=== PATIENT | male | born 1980 | race Caucasian/White ===

== ENCOUNTER 2018-07-25 13:24 | Outpatient (CLI) | payer MEDICAID, SELFPAY | END 2018-07-25 13:44 | PROVIDERS: PCP Internal Medicine; Visit Provider Nurse Practitioner Family | DX: F11.20 Opioid dependence, uncomplicated (principal); Z79.899 Other long term (current) drug therapy | CPT/HCPCS: 93005; 93010 ==

== ENCOUNTER 2019-10-16 03:52 | Outpatient (CLI) | payer MEDICAID, SELFPAY ==
--- NOTE | 2019-10-16 08:15 | RT.EKG_ITS ---
APPROVED REPORT Exam: Resting ECG Patient Location: O HR:73 bpm ECG Measurements Heart Rate 73 AXIS MA 144 P 19 QRSd 96 QRS 31 QT 419 T 2 QTc 463 <Conclusion> Sinus rhythm...normal P axis, V-rate 60- 99 Normal Electrocardiogram
== END 2019-10-16 04:12 ==
PROVIDERS: PCP Internal Medicine; Visit Provider Family Medicine
DX: Z79.899 Other long term (current) drug therapy (principal); Z13.6 Encounter for screening for cardiovascular disorders
CPT/HCPCS: 93005; 93010

== ENCOUNTER 2020-11-18 04:01 | Outpatient (CLI) | payer MEDICAID, SELFPAY ==
--- NOTE | 2020-11-18 08:15 | RT.EKG_ITS ---
APPROVED REPORT Exam: Resting ECG Reason for Exam: High Risk Medication Patient Location: O HR:53 bpm ECG Measurements Heart Rate 53 AXIS UT 144 P 0 QRSd 92 QRS 68 QT 439 T 62 QTc 412 Conclusion Sinus bradycardia...rate< 60
== END 2020-11-18 04:02 | disposition home or self-care (01) ==
LOC: RT 04:02
PROVIDERS: PCP Internal Medicine; Visit Provider Family Medicine
DX: Z79.899 Other long term (current) drug therapy (principal)
CPT/HCPCS: 93005; 93010

== ENCOUNTER 2021-10-01 19:08 | Emergency (ER) | payer MEDICAID, SELFPAY ==
[2021-10-01 19:16] VITALS: BP 139/85; PULSE 68; RESP 22; TEMP 36.6; O2SAT 100
--- NOTE | 2021-10-01 19:18 | W.ED.GENAD ---
Discharge Plan Disposition Patient Disposition: HOME Condition: Stable Discharge Details Clinical Impression: Encounter for medical assessment Primary Care Provider: Vipin Beaver ED Provider: Mindy Cisneros Home Meds and New Rx's Prescriptions: Continued buprenorphine-naloxone [Suboxone] 1 EACH film 1 ea Sublingual DAILY ibuprofen 600 MG tablet 600 mg PO QID PRN PRNQty: 30 0RF Discontinued levofloxacin [Levaquin] 750 MG tablet 750 mg PO DAILY Qty: 9 0RF Rx Instructions: start 11/24/16 Discharge Instructions Instructions: Altered Mental Status (ED), Fatigue (ED) Additional Instructions: Drink plenty of fluids and get plenty of rest. Follow-up with your primary care doctor in 1 week. Return to the emergency department with any worsening or new concerning symptoms. 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 Patient was eventually able to ambulate on scene and had no acute complaints. Patient states he is unsure why he is here. He currently has no acute complaints. Vitals are within normal limits. No obvious acute findings on exam. Patient appears awake and alert and oriented x3 and no focal deficits or evidence of trauma. Patient would like to go home and is declining any work-up. History and presentation does not appear consistent with traumatic injury, ACS, PE, CVA. Advised to follow up with the primary care doctor for re-evaluation. Usual and customary return precautions given prior to discharge. Medical Records Medical records reviewed: Yes I reviewed the patient's medical records. HPI General Mode of arrival: ambulatory. Date/Time Provider Initiated Documentation: 10/01/21 19:24. Limitations to Documentation: no limitations. Information obtained by: patient. 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 Patient states his friend was in the delivery driver/customer service side of a vehicle that was parked when bystanders called EMS. EMS noted that patient was asleep in the passenger side, slumped over and was not initially responding to tactile stimuli and decided to bring him in for further evaluation. Patient was eventually able to wake up and ambulate on scene and had no acute complaints. Patient denies any recent injury, headache, blurry vision, chest pain, shortness of breath, abdominal pain, nausea, vomiting, diarrhea. Patient denies any alcohol or drug use today. He states he did take his methadone this morning. Related Data Home Medications Medication Instructions Recorded Confirmed buprenorphine 12 mg-naloxone 3 mg 1 ea sublingual DAILY 04/11/13 11/23/16 sublingual film (Suboxone) ibuprofen 600 mg tablet 600 mg PO QID PRN PRN #30 tabs 02/06/15 11/23/16 Previous Rx's Medication Instructions Recorded ibuprofen 600 mg tablet 600 mg PO QID PRN PRN #30 tabs 02/06/15 Allergies Allergy/AdvReac Type Severity Reaction Status Date / Time No Known Allergies Allergy Unverified 11/23/16 11:39 General Stated Complaint: GenMedical CHEMO: 3 Review of Systems All systems reviewed & are unremarkable except as noted in HPI and below Constitutional Constitutional: Denies chills, Denies excessive sweating, Denies fatigue, Denies fever(s), Denies weakness and Denies weight loss Eyes Eyes: Reports system reviewed and no additional complaints, except as documented and Denies blurry vision ENT Ears, Nose, Mouth, and Throat: Denies vertigo, Denies dizziness, Denies otalgia, Denies nasal congestion, Denies sore throat and Denies throat swelling Cardiovascular Cardiovascular: Denies chest pain, Denies syncope, Denies rapid heart rate and Denies dyspnea Respiratory Respiratory: Denies chest congestion, Denies cough, Denies pain on inspiration and Denies dyspnea Gastrointestinal Gastrointestinal: Denies abdominal pain, Denies diarrhea and Denies vomiting Genitourinary Genitourinary: Denies hematuria, Denies dysuria and Denies flank pain Musculoskeletal Musculoskeletal: Denies back pain and Denies joint swelling Integumentary/Breasts Skin/Breast: Denies lesions and Denies rash Neurologic Neurologic: Denies behavioral changes, Denies confusion, Denies vertigo, Denies dizziness, Denies syncope, Denies localized weakness and Denies weakness Psychiatric Psychiatric: Denies behavioral changes, Denies confusion and Denies depression Endocrine Endocrine: Denies excessive sweating and Denies fatigue Hematologic/Lymphatic Hematologic/Lymphatic: Denies easy bruising and Denies lymphadenopathy Allergic/Immunologic Allergic/Immunologic: Denies throat swelling PFSH All Active Problems (Updated 10/01/21 @ 19:19 by Mindy Cisneros DO) Encounter for medical assessment (Acute) Medical History (Updated 10/01/21 @ 19:19 by Mindy Cisneros DO) Narcotic abuse in remission Surgical History (Updated 10/01/21 @ 19:19 by Mindy Cisneros DO) No significant past surgical history Social History Smoking/Tobacco Use Status: Current every day Smoking risk assessment performed?: Yes Drug use: Daily Exam Const General: cooperative Orientation: alert, awake and oriented x3 HENMT Head: normal to inspection Ears: hearing grossly normal bilaterally and external ears normal General nose exam: external nose normal Face and sinus: normal facial exam Mouth: oral mucosae normal Teeth and gingiva: dentition normal Throat: posterior oropharynx normal Eyes General: appearance normal, both eyes and all related structures Eyelids: eyelids normal Pupils: PERRL EOM: EOM intact bilaterally Neck Neck: normal visual inspection Lymphatic: no lymphadenopathy noted Chest Chest: normal inspection of the chest Resp Effort & Inspection: normal respiratory effort and able to speak in complete sentences Auscultation: clear to auscultation bilaterally Cardio Rate: regular rate Rhythm: regular rhythm GI Inspection: normal to inspection Palpation: soft, not firm, no guarding, no hepatosplenomegaly, no masses and nontender Auscultation: normal bowel sounds Back/Spine/Pelvis Back: no CVA tenderness Skin General skin exam: no rashes or lesions noted Neuro General: patient alert and patient awake Cognition: normal cognition Speech: speech normal Gait: normal gait Motor: muscle tone normal throughout Sensory Exam: no sensory deficits noted Extrem General: normal to inspection, full ROM and capillary refill normal Psych Appearance: grossly normal Mental Status: mental status grossly normal Speech and Movement: speech and movement normal Affect: normal affect Thought Process: normal
== END 2021-10-01 19:27 | disposition home or self-care (01) ==
LOC: ER 19:38
PROVIDERS: Emergency Provider Physician Assistant; PCP Internal Medicine
DX: Z00.00 Encounter for general adult medical examination without abnormal findings (principal); F17.200 Nicotine dependence, unspecified, uncomplicated
CPT/HCPCS: 99283; 99281

== ENCOUNTER 2022-02-25 05:42 | Emergency (ER) | payer MEDICAID, SELFPAY ==
[2022-02-25 05:46] VITALS: BP 146/83; PULSE 75; RESP 18; TEMP 37; O2SAT 100
--- NOTE | 2022-02-25 06:07 | W.ED.GENAD ---
Discharge Plan Disposition Patient Disposition: Home Condition: Good Discharge Details Clinical Impression: Cellulitis of finger of right hand Primary Care Provider: Vipin Beaver ED Provider: Acosta Kong Home Meds and New Rx's Prescriptions: New clindamycin HCl [Cleocin HCl] 150 mg capsule 450 mg PO QID 10 Days Qty: 120 0RF Discharge Instructions Instructions: Cellulitis (ED) Additional Instructions: At this time you have cellulitis and a bacterial infection in your finger, wrist and left fallon. Please take the antibiotics as directed. It is been sent to your Car in the [place]. Please take a probiotic in the meantime to help prevent any diarrhea while taking the antibiotic. If you notice any worsening of your symptoms, or any new symptoms such as worsening or increasing swelling or redness, vomiting, diarrhea, fever, chills, shortness of breath, chest pain, numbness, weakness, or fainting , please return immediately to the emergency department for reevaluation. Please follow up with your primary care provider as soon as possible for reassessment and reevaluation. As always, it was a pleasure participating in your medical care today. Referrals: Vipin Beaver MD [Primary Care Provider] - Medical Decision Making 41-year-old male presents today for evaluation of a lesion on his right wrist, right middle finger, and left fallon. Patient states that for the last week or so these been present. He has tried to drain them but has been relatively unsuccessful. He denies fever or chills. He denies chest pain or shortness of breath. He denies IV or illicit drug use. He denies any recent infections other than these lesions. He states that this started out as pimples. No other complaints at this time. No other modifying factors. Exam demonstrates a few scattered cellulitic lesions the patient's right middle finger, right wrist and left fallon. No evidence of tensor or flexor tenosynovitis, no evidence of abscess. Will prescribe clindamycin here and a prescription will be sent to his pharmacy. No evidence of sepsis clinically or bacteremia. Discussed red flags which to return. I have extensively reviewed the treatment plan and discharge instructions with the patient. I have addressed all patient concerns at this time. The patient was made aware of what symptoms to monitor for that would warrant a return to the emergency department. Discussed the plan with the patient, they demonstrate verbal understanding and agreement with our assessment and plan at this time. The documentation in this chart was dictated using [employer] dictation software. Please excuse any dictation errors. Sign Out No HPI General Date/Time Provider Initiated Documentation: 02/25/22 06:06. HPI Narrative: 41-year-old male presents today for evaluation of a lesion on his right wrist, right middle finger, and left fallon. Patient states that for the last week or so these been present. He has tried to drain them but has been relatively unsuccessful. He denies fever or chills. He denies chest pain or shortness of breath. He denies IV or illicit drug use. He denies any recent infections other than these lesions. He states that this started out as pimples. No other complaints at this time. No other modifying factors. Related Data Home Medications Medication Instructions Recorded Confirmed clindamycin HCl 150 mg capsule 450 mg PO QID 10 days #120 caps 02/25/22 (Cleocin HCl) Previous Rx's Medication Instructions Recorded clindamycin HCl 150 mg capsule 450 mg PO QID 10 days #120 caps 02/25/22 (Cleocin HCl) Allergies Allergy/AdvReac Type Severity Reaction Status Date / Time No Known Allergies Allergy Unverified 02/25/22 05:46 General Stated Complaint: RashLesion CHEMO: 4 Review of Systems All systems reviewed & are unremarkable except as noted in HPI and below PFSH All Active Problems Cellulitis of finger of right hand (Acute) Medical History Narcotic abuse in remission Surgical History No significant past surgical history Social History Smoking/Tobacco Use Status: Current every day Tobacco Type: cigarettes Smoking risk assessment performed?: Yes Alcohol Intake: never Drug use: Daily Substance use type: does not use Do you feel safe at home: Yes Do you feel safe in your relationship?: Yes Exam Narrative Exam Narrative: 1.Const: Well-nourished, Well-developed, appearing stated age 2.Eyes: PERRL, no conjunctival injection, and symmetrical lids. 3.ENT: Atraumatic external nose and ears. Moist MM. Neck: Symmetric, trachea midline, No thyromegaly. 4.CVS: +S1/S2, No murmurs or gallops. Peripheral pulses 2+ and equal in all extremities. Brisk capillary refill in all extremities. 5.RESP: Unlabored respiratory effort. Clear to auscultation bilaterally. No wheezes rales or rhonchi 6.GI: Soft, Nontender/Nondistended, No hepatosplenomegaly. No guarding or rebound. 7.MSK: Normocephalic/Atraumatic, Extremities w/o deformity or ttp No cyanosis or clubbing, Normal movement of all extremities 8.Skin: Warm, Dry. Patient demonstrates a small cellulitic lesion on the dorsal aspect of his right middle finger, mild cellulitic area of redness over the right wrist, and a small lesion over the left fallon. No abscess or fluctuance. No evidence of neurovascular compromise. No evidence of flexor or tensor synovitis. No sausage shaped digits. 9.Neuro: manager personal II-XII grossly intact. Sensation grossly intact, no focal neurologic deficits. 10.Psych: (AAO) x3. Appropriate mood and affect Course Vital Signs Vital signs: Vital Signs Temperature 37 C 02/25/22 05:46 Pulse 75 02/25/22 05:46 Respiratory Rate 18 02/25/22 05:46 Blood Pressure 146/83 H 02/25/22 05:46 Pulse Oximetry 100 02/25/22 05:46 Temperature 37 C 02/25/22 05:46 Temperature Source Temporal Artery Scan 02/25/22 05:46 Pulse 75 02/25/22 05:46 Respiratory Rate 18 02/25/22 05:46 Respiratory Effort Non-Labored 02/25/22 05:52 Blood Pressure 146/83 H 02/25/22 05:46 Blood Pressure Position Sitting 02/25/22 05:46 Pulse Oximetry 100 02/25/22 05:46 Oxygen Delivery Method Room Air 02/25/22 05:46 Oxygen Flow Rate 0 02/25/22 05:46 Pain Level 6 02/25/22 05:46 PAWSS Have you Been Recently Intoxicated or Drunk Within the Last 30 days?: No Have you Ever Experienced Previous Episodes of Alcohol Withdrawal?: No Have you ever Experienced Withdrawal Seizures?: No Have you ever Experienced Delirium Tremens(DT)s?: No Have you ever undergone Alcohol Rehabilitation Treatment (i.e, inpt ot outpatient treatment programs)?: No Have you ever Experienced Blackouts?: No Have you ever Combined Alcohol with other Downers within the last 90 days?: No Have you ever Combined Alcohol with any other Substance of Abuse during the last 90 days?: No Positive Blood Alcohol level on Presentation? [PCS.BAL]: No Evidence of Increased Autonomic Activity (i.e. HR>120, tremor, sweating, agitation, nausea)?: No Result: 0
[2022-02-25] MEDS: Clindamycin 150 MG CAP, 12 CAPS/BTL 450 MG PO (06:12)
== END 2022-02-25 06:17 | disposition home or self-care (01) ==
PROVIDERS: Emergency Provider Student in an Organized Health Care Education/Training Program; PCP Internal Medicine
DX: L03.113 Cellulitis of right upper limb (principal); L03.116 Cellulitis of left lower limb
CPT/HCPCS: 99283

== ENCOUNTER 2022-03-22 00:16 | Inpatient (IN) | payer MEDICAID, SELFPAY ==
[2022-03-22] VITALS (210 sets, daily range): BP systolic 64–217; BP diastolic 33–125; PULSE 48–134; RESP 13–40; TEMP 36.1–36.9; O2SAT 84–100
[2022-03-22] MEDS: LORazepam 2 MG/ML VIAL (00:27)
[2022-03-22] MEDS: Ketamine 500 MG/10 ML VIAL 150 MG IM (00:43)
--- NOTE | 2022-03-22 00:45 | DI.RAD_ITS ---
Exam(s) XR PORTABLE CHEST AP POST LINE EXAM: XR PORTABLE CHEST AP POST LINE CLINICAL HISTORY: ams/ intubation TECHNIQUE: 2D digital imaging was performed. COMPARISON: CR RIGHT WRIST COMPLETE from 02/06/2015 FINDINGS: An endotracheal tube has been placed which lies at the level of the aortic arch. Leads overlie the c hest. Small portions of the costophrenic angles are not included on the exam. LUNGS: Clear. No pleural abnormality seen. HEART: Normal size. AORTA: Normal diameter. BONES: Unremarkable for age. Soft tissues: Unremarkable. IMPRESSION: Satisfactory placement of endotracheal tube. DATA REPOSITORY: RADIATION DOSE DELIVERED:
[2022-03-22 00:58] LABS: Abs Immature Grans 0.04 10^3/uL (0.0-0.06); Absolute Basophil Count 0.12 10^3/uL (0.0-0.2); Absolute Eosinophil Count 0.12 10^3/uL (0.0-0.7); Absolute Lymphocyte Count 3.05 10^3/uL (1.2-3.4); Absolute Monocyte Count 0.89 10^3/uL (0.1-0.8); Absolute Neutrophil Count 9.45 10^3/uL (1.2-6.7); Basophils % 0.9; Eosinophils % 0.9; HCT 40.3 % (40.0-50.0); HGB 13.7 g/dL (13.5-17.5); Immature Grans % 0.3; Lymphocytes % 22.3; MCH 27.9 pg (27.0-33.0); MCV 82 fL (80-95); MPV 10.3 fL (8.0-11.0); Monocytes % 6.5; Neutrophils % 69.1; Platelet Count 473 10^3/uL (130-400); RBC 4.91 10^6/uL (4.36-5.78); RDW-SD 36.2 fL; WBC 13.67 10^3/uL (4.4-10.8)
[2022-03-22 01:13] LABS: Acetaminophen < 2 ug/mL (10-30); Salicylate 3.5 mg/dL (<2.8)
[2022-03-22] MEDS: Etomidate 20 MG/10 ML VIAL IVP (01:15)
[2022-03-22] MEDS: Succinylcholine 200 MG/10 ML VIAL 100 MG IVP (01:15)
--- NOTE | 2022-03-22 01:15 | DI.CT_ITS ---
Exam(s) CT HEAD WO EXAM: CT HEAD WO CLINICAL HISTORY: ams, agitation. TECHNIQUE: Imaging Protocol: Axial computed tomography images with coronal and sagittal reformatted images were created and reviewed COMPARISON: No exams were available for comparison FINDINGS: Ventricles and Extra axial spaces: Normal in size and morphology for the patient's age. Hemorrhage: None. Cerebral parenchyma: Normal. Midline shift: None. Brainstem/Cerebellum: Normal. Calvarium: Normal. Visualized Paranasal sinuses/Mastoids: Minimal ethmoid sinus mucosal thickening. Soft Tissues: Unremarkable. Endotracheal tube and nasogastric tube noted. IMPRESSION: No acute intracranial process. RADIATION DOSE DELIVERED: 994.73mGy.cm Total DLP DATA REPOSITORY: All CT scans at this facility are submitted to the National Radiology Data Registry (NRDR) Dose Index Registry (DIR) with the [employer] (A[employer]). RADIATION OPTIMIZATION: All CT scans at this facility use at least one of these dose optimization te chniques: automated exposure control; mA and/or kV adjustment per patient size (includes targeted exa ms where dose is matched to clinical indication); or iterative reconstruction.
[2022-03-22 01:22] LABS: ALT 18 U/L (16-63); AST 23 U/L (15-37); Albumin 4.2 g/dL (3.4-5.0); Alkaline Phosphatase 90 U/L (46-116); BUN 16 mg/dL (7-18); Bilirubin, Total 0.8 mg/dL (0.2-1.0); CREATININE 1.3 mg/dL (0.70-1.30); Calcium 9.2 mg/dL (8.5-10.1); Chloride 102 mmol/L (98-107); Estimated GFR 71.67 (mL/min/1.73m2); Glucose 134 mg/dL (74-106); Magnesium 1.9 mg/dL (1.8-2.4); Potassium 3.2 mmol/L (3.5-5.1); Sodium 139 mmol/L (136-145); TSH (W/Ref FT4) 0.71 uIU/mL (0.36-3.74)
[2022-03-22] MEDS: PROPOFOL 1,000 MG/100 ML BTL 9.6 MG (01:22)
[2022-03-22 01:28] LABS: ETHANOL BLOOD < 3.0 mg/dL (<10)
[2022-03-22] MEDS: Midazolam 10 MG/2 ML VIAL NS (01:31)
[2022-03-22] MEDS: Normal Saline 1,000 ML 1000 ML IV (01:33)
[2022-03-22] MEDS: Ondansetron 4 MG/2 ML VIAL IVP (01:35)
--- NOTE | 2022-03-22 01:40 | ED.GENADUL_ITS ---
Discharge Plan Disposition Patient Disposition: Admit to [facility] Condition: Serious Discharge Details Chief Complaint: AMS/LOC Clinical Impression: Agitation, Acute opioid withdrawal, Polysubstance abuse Primary Care Provider: Vipin Beaver ED Provider: Kris Burnham Medical Decision Making 41-year-old male picked up by PD for breaking curfew given Narcan by PD for initial somnolence, patient progressed to agitation combativeness psychomotor agitation and aggression, brought in by EMS in four-point restraints, thrashing aggressive altered not responding verbally, not following commands, patient diaphoretic intermittently yawning and having fecal incontinence. High clinical suspicion for acute opioid withdrawal and subsequent agitation versus tox versus less consider traumatic injury however per report by Police Department and EMS there was no traumatic injury at scene or during transport, muscles consider electrolyte abnormality versus infectious process. Patient was brought into room transferred to bed kept in four-point restraints, multiple attempts at IV access were attempted however patient thrashing aggressively prohibited successful placement, eventually after 2 mg IM Ativan and 75 mg IM ketamine a left-sided EJ peripheral line was placed labs were obtained, patient became progressively more agitated aggressive pulling at restraints intermittently becoming somnolent and desat into the 80s placed on nasal cannula this cycle of agitation followed by somnolence increase in severity, for patient's airway protection and expected clinical course as well as for the ability to perform appropriate diagnostic tests patient was transferred to a larger room and prepared for endotracheal intubation. During this process patient's left-sided EJ pulled out due to persistent diaphoresis and thrashing, and IO line was placed in right tibial region, patient was induced with etomidate and paralyzed with succinylcholine, intubated DL 7.5 cuffed tube patient did have initial desaturation to the 60s upon induction but was easily bagged back up to the high 90s. Patient placed on ventilator and started on propofol. Patient requiring intermittent pushes of Versed to remain sedated appropriately. Will likely have to transition patient to dexmedetomidine. Patient will be sent to diagnostic imaging for CT head. Will send basic labs toxicology labs, urinalysis, VBG. Admission to ICU 3: 01 labs largely unremarkable. X-ray confirming ET tube placement. Patient saturating well on the vent. Hemodynamically stable. Despite uptitrating propofol patient still agitated intermittently bucking and breathing against the vent, have given him 2 boluses of Versed without response, now have transition patient to Precedex drip starting at 0.2 mg/kg/h we will continue to uptitrate to sedation to safely transport patient to CT table for CT head. 5: 30 patient required multiple propofol boluses on top of Precedex drip in order to properly sedate for CT and transport. Became bradycardic to the 50s and dropped his pressure to 60s systolic likely secondary to Precedex. Was given fluid bolus with improvement of pressures to the 70s systolic however MAP still less than 65. A sterile right femoral central line was placed and norepinephrine was hung. Patient's blood pressure has responded appropriately. CT head negative for intracranial pathology. Patient be admitted to ICU HPI General Date/Time Provider Initiated Documentation: 03/22/22 00:35 . HPI Narrative: 41-year-old male history of polysubstance abuse, records show that he is a patient taking Suboxone, was in violation of curfew due to recent release, was picked up by PD, officer noted during transport that he became more somnolent was leaning his head against the window patient was initially arousable however became somnolent again; Narcan was administered x2, after this patient became more agitated combative and then intermittently somnolent. After returning to the [facility] with patient patient became increasingly more erratic and aggressive, with worsening mental status. EMS was called to the scene, patient was placed in restraints on gurney, arrived to ED acutely agitated combative thrashing on bed. Per PD and EMS no trauma at scene. No drug paraphernalia was found on patient. Related Data Allergies Allergy/AdvReac Type Severity Reaction Status Date / Time No Known Allergies Allergy Unverified 02/25/22 05:46 General Stated Complaint: AMS/LOC CHEMO: 2 Review of Systems Narrative: Review of Systems Constitutional: negative Eyes: negative ENT: negative Cardiovascular: negative Respiratory: negative Gastrointestinal: negative : negative Musculoskeletal: negative Skin: negative Neurologic: Agitation, altered mental status Psych: negative PFSH All Active Problems (Updated 03/22/22 @ 05:32 by Kris Burnham MD) Cellulitis of finger of right hand (Acute) Agitation (Acute) Acute opioid withdrawal (Acute) Polysubstance abuse (Acute) Medical History Narcotic abuse in remission Surgical History No significant past surgical history Social History Smoking/Tobacco Use Status: Current every day Tobacco Type: cigarettes Smoking risk assessment performed?: Yes Alcohol Intake: never Drug use: Daily Substance use type: does not use Do you feel safe at home: Yes Do you feel safe in your relationship?: Yes Exam Narrative Exam Narrative: Physical Examination General: Acutely agitated, thrashing, diaphoretic HEENT: normocephalic, atraumatic; PERRL, EOM intact, conjunctiva normal; patient yawning, spitting Neck: supple, trachea midline; full ROM Chest: normal to inspection Respiratory: normal respiratory effort, lungs clear bilaterally Cardiac: Tachycardia, regular rhythm, S1S2 intact, no murmurs rubs or gallops GI: abdomen soft, non-tender, non-distended; no palpable mass or hepatosplenomegaly : Patient defecated on self Skin: Diaphoretic Neuro: Acutely altered, agitated, moving all extremities with great strength Extremities: No signs of trauma or edema Psych: Psychomotor agitation Course Vital Signs Vital signs: Vital Signs Temperature 36.7 C 03/22/22 00:36 Pulse 129 H 03/22/22 00:36 Respiratory Rate 32 H 03/22/22 00:36 Blood Pressure 141/77 H 03/22/22 00:36 Pulse Oximetry 97 03/22/22 00:36 Temperature 36.7 C 03/22/22 00:36 Temperature Source Tympanic 03/22/22 00:36 Pulse 98 H 03/22/22 01:24 Pulse 103 H 03/22/22 01:24 Respiratory Rate 18 03/22/22 01:24 Respiratory Effort 03/22/22 00:23 Blood Pressure 118/93 H 03/22/22 01:24 Blood Pressure Mean 97 03/22/22 01:24 Blood Pressure Position Supine 03/22/22 00:15 Pulse Oximetry 96 03/22/22 01:24 Respiratory End-tidal CO2 66 03/22/22 01:24 Oxygen Delivery Method Nasal Cannula 03/22/22 00:46 Oxygen Flow Rate 4 03/22/22 00:46 Pain Level 0 01/02/23 00:15 Comment 03/22/22 00:46 Lab/Test Results Lab/Test Results: Laboratory Tests Range/Units 03/22/22 03/22/22 03/22/22 00:50 00:50 00:50 WBC (4.4-10.8) 10^3/uL 13.67 H RBC (4.36-5.78) 10^6/uL 4.91 Hgb (13.5-17.5) g/dL 13.7 Hct (40.0-50.0) % 40.3 MCV (80-95) fL 82 MCH (27.0-33.0) pg 27.9 MCHC (32.0-36.0) % 34.0 RDW (11.8-14.1) % 12.0 Plt Count (130-400) 10^3/uL 473 H MPV (8.0-11.0) fL 10.3 Immature Gran % 0.3 Neutrophils % 69.1 Lymphocytes % 22.3 Monocytes % 6.5 Eosinophils % 0.9 Basophils % 0.9 Nucleated RBC % (0.0-0.3) % 0.0 Absolute Neutrophils (1.2-6.7) 10^3/uL 9.45 H Absolute Lymphocytes (1.2-3.4) 10^3/uL 3.05 Absolute Monocytes (0.1-0.8) 10^3/uL 0.89 H Absolute Eosinophils (0.0-0.7) 10^3/uL 0.12 Absolute Basophils (0.0-0.2) 10^3/uL 0.12 Sodium (136-145) mmol/L 139 Potassium (3.5-5.1) mmol/L 3.2 L Chloride (98-107) mmol/L 102 Carbon Dioxide (21.0-32.0) mmol/L 24.0 Anion Gap (3-11) mmol/L 13.0 H BUN (7-18) mg/dL 16 Creatinine (0.70-1.30) mg/dL 1.3 Est GFR (CKD-EPI 2020) (mL/min/1.73m2) 71.67 Glucose (74-106) mg/dL 134 H Calcium (8.5-10.1) mg/dL 9.2 Magnesium (1.8-2.4) mg/dL 1.9 Total Bilirubin (0.2-1.0) mg/dL 0.8 AST (15-37) U/L 23 ALT (16-63) U/L 18 Alkaline Phosphatase (46-116) U/L 90 Total Protein (6.4-8.2) g/dL 8.0 Albumin (3.4-5.0) g/dL 4.2 TSH (0.36-3.74) uIU/mL 0.71 Salicylates (<2.8) mg/dL 3.5 Acetaminophen (10-30) ug/mL < 2 Ethyl Alcohol (<10) mg/dL < 3.0 Procedures Central Line Placement Right Femoral: Time Out Performed: No Patient Placed on Monitor/Pulse Ox: Yes MD Prep: mask, gown and gloves Central Line Prep: Chlorhexidine scrub Local Anesthetic: Lidocaine 1% Amount of anesthesia used (mL): 4 Ultrasound Used for Placement: Yes Central Line Lumen Inserted: triple Post Procedure: good blood return and all ports aspirated, flushed, capped Patient Tolerated Procedure: well Complications: none Intubation Time out performed: No sedative: Etomidate Mg Given: 20 paralytic: Succinylcholine Mg Given: 100 Laryngoscope: Michael ET Tube Size: 7.5 ET Tube Uncuffed: Yes Tube Placement Confirmation: visualized tube passing through cords, equal breath sounds bilaterally, no breath sounds over epigastrum and confirmation by capnometry Intubation Complications: hypoxia Additional Comments: Desaturation to 60% after induction, was easily bagged back up to high 90s. IO Right Tibia: Time Out Performed: No IO Instrument Used to Penetrate the Cortex: standard IO needle Patient Tolerated Procedure: well Complications: none
--- NOTE | 2022-03-22 02:10 | DI.VRAD_ITS ---
PROCEDURE INFORMATION: Exam: XR Chest Exam date and time: 03/22/2022 1:11 AM Age: 41 years old Clinical indication: Device placement; Other: Post intubation; Patient HX: AMS TECHNIQUE: Imaging protocol: Radiologic exam of the chest. Views: 1 view. COMPARISON: No relevant prior studies available. FINDINGS: Tubes, catheters and devices: Endotracheal tube is in place with distal tip approximately 4.2 cm proximal to the fam. Lungs: Lungs are adequately inflated symmetric. No focal consolidation. Pleural spaces: Bilateral costophrenic angles are excluded from field of view limiting evaluation for small pleural effusion. No large pleural effusion. No pneumothorax. Heart/Mediastinum: No cardiomegaly. Bones/joints: No acute osseous finding. IMPRESSION: Endotracheal tube in place in appropriate position. Dictated and Authenticated by: Zach Whittaker MD. Ordering:ALF Ponce MD
[2022-03-22] MEDS: dexmedeTOMidine IN 0.9 % NACL 400 MCG/100 ML BTL IV (02:33)
[2022-03-22] MEDS: PROPOFOL 1,000 MG/100 ML BTL 19.2 MG IV (02:34)
[2022-03-22 02:39] LABS: BE (Venous) 1 mmol/L (-2-3); HCO3 (Venous) 26 mmol/L (23-28); pCO2 (Venous) 45 mmHg (41-51); pH (Venous) 7.37 (7.31-7.41); pO2 (Venous) 225 mmHg
[2022-03-22 02:40] LABS: O2 Sat (Venous) > 99 %
--- NOTE | 2022-03-22 02:40 | NUR.NOTE ---
Nursing Note: Patient arrives to ED in 4 point restraints with EMS from police baracks. Arousable, responsive to stimuli with movement, combative. Maintaining airway. Moving all four extremities, not following commands. IM ativan given (see MAR for further documentaion). Patient remains difficult to restrain while obtaining vital signs and IV access requiring four people in addition to four point restraints. IM ketamine given (see MAR for further documentation). Patient continues to be restless, combative and difficult to subdue. Begins to intermitently desat. Plan to intubate for airway protection and diagnositic work up. Unable to obtain IV access due to combativeness and profuse sweating, IO access obtained by MD. 0110: Intubated with etomidate and succ through IO access. IV access obtained. 0120: Propofol started at 20 mcg/kg, given inital loading bolus of 100 mg. 0125: Propofol titrated up to 30 mcg/min. BP remains stable. 0128: Patient continues to be inadequately sedated as evidenced by biting ET tube and continous movement of all four restrained limbs. Second bolus of prop given by MD. 5MG versed given IV push. 0145: Propofol titraed up to 40mcg/min. Continous to be inadequatly sedated. Second bolus of 5mg versed given. OG tube and galloway placed. Patient invontinent of stool. Cleaned up. Changed from four point hard restraints to four point soft restraints due to chaffing. Patient has new abrasions to right wrist and right leg at place of hard restraints due to resistance and difficulty with sedation. 0200: Propofol titraed up to 60mcg/min. Continous to be inadequatly sedated. Plan to transition to precedex for more adequate sedation. Vitals continue to remain stable. 0227: Precedex started at .2mg/kg/min. Propfol titrated down to 40mcg/min. Patient continues to show signs of inadequate sedation. Vitally stable. 0230: Propofol titrated down to 30, plan to titrate up precedex at appropriate interval. Patient continues to remain vitally stable, continuous monitoring remains in place, BP cycling Q5min. 0300: Nursing report given to RN's Sarah and Jenna.
[2022-03-22 02:52] LABS: Bilirubin Small (Negative); Blood Negative (Negative); Clarity Sl Cloudy (Clear); Glucose Negative (Negative); Ketones 15 mg/dL (Negative); Leukocyte Esterase Negative (Negative); Nitrite Negative (Negative); pH 8.5 (5-8)
--- NOTE | 2022-03-22 02:52 | NUR.NOTE ---
Nursing Note: 0248: increased precedex to 0.4mcg/kg/hr per dr. ruano
[2022-03-22 03:01] LABS: *AMPHETAMINES SCREEN URINE Negative (Negative); *BARBITURATES SCREEN URINE Negative (Negative); *BENZODIAZEPINES SCREEN URINE Negative (Negative); Bacteria Moderate HPF (Negative); C & S Indicated? Yes; Cannabinoids THC Negative (Negative); Cocaine Screen,Urine Positive (Negative); Crystals Negative HPF (Negative); Epithelial Cells Negative HPF (Negative); METHADONE URINE SCREEN Negative (Negative); Mucus Moderate (Negative); OPIATES URINE SCREEN Positive (Negative); Other Cells Rare Transitional (Negative)
[2022-03-22 03:02] LABS: Tricyclic Antidepressants Negative (Negative)
--- NOTE | 2022-03-22 03:18 | NUR.NOTE ---
Nursing Note: [address] ruano, increase precedex 0.2mcg/kg/hr
[2022-03-22] MEDS: Lactated Ringers 1,000 ML 1000 ML IV (03:20)
--- NOTE | 2022-03-22 03:44 | NUR.NOTE ---
Nursing Note: 0342 - increase precedex to 0.8 mcg/kg/hr
--- NOTE | 2022-03-22 05:04 | DI.VRAD_ITS ---
PROCEDURE INFORMATION: Exam: CT Head Without Contrast Exam date and time: 03/22/2022 3:53 AM Age: 41 years old Clinical indication: Altered mental status/memory loss; Patient HX: Ams/agitation TECHNIQUE: Imaging protocol: Computed tomography of the head without contrast. Radiation optimization: All CT scans at this facility use at least one of these dose optimization techniques: automated exposure control; mA and/or kV adjustment per patient size (includes targeted exams where dose is matched to clinical indication); or iterative reconstruction. COMPARISON: No relevant prior studies available. FINDINGS: Brain: Mild volume loss. No hemorrhage. Unremarkable white matter. No mass effect. Cerebral ventricles: No ventriculomegaly. Paranasal sinuses: Visualized sinuses are unremarkable. No fluid levels. Mastoid air cells: Visualized mastoid air cells are well aerated. Bones/joints: Unremarkable. No acute fracture. Soft tissues: Unremarkable. IMPRESSION: No acute intracranial abnormality. Dictated and Authenticated by: Randall Guaman MD. Ordering:ALF Ponce MD
[2022-03-22] MEDS: Norepinephrine in D5W 8 MG/250 ML BAG 7.5 MG IV (05:05)
--- NOTE | 2022-03-22 05:08 | NUR.NOTE ---
Nursing Note: 0345 - transported pt CT with RT and Dr. Sepulveda. Pt started to become combative and attempt to pull tube out. Dr. Sepulveda medicated pt. After medicating pt was able to have CT. 0447 - pt BP drop to 70s systolic. Notified provider. Precedex decreased to 0.6mcg/kg/hr; propofol no longer running. 0452 - Norepi started at 7.5ml/hr in right hand. 0504 - central line placed in right femoral artery by Dr. Zacarias
--- NOTE | 2022-03-22 05:13 | NUR.NOTE ---
Girlfriend Jacklyn, .Nursing Note:
[2022-03-22 05:34] LABS: Source Nasal/Nares
--- NOTE | 2022-03-22 05:38 | NUR.NOTE ---
Nursing Note: 0525- pt became agitated when being covid swabbed, attempted to pull tube out. Increased precedex to 1 per Doc.
[2022-03-22] MEDS: Lactated Ringers 1,000 ML 2000 ML IV (05:41)
--- NOTE | 2022-03-22 05:51 | W.PM.HP.N ---
Date of service: 03/22/22 Time of Service: 06:00 Assessment and Plan Assessment and plan (1) Agitation: Status: Acute Assessment and plan: He has required multiple agents to deal with his agitation. He is currently on Precedex is causing some bradycardia and had caused some hypotension. He required norepinephrine to increase his pressure. He is currently bradycardic but maintaining his blood pressure. He may have had some aspiration with the extubation. He will be monitored closely in the intensive care unit. Hopefully his medicines can be tapered later today and further mental status evaluation can be evaluated. (2) Acute opioid withdrawal: Status: Acute Assessment and plan: Urine drug screen confirmation has been sent to identify the opiates in the urine. (3) Polysubstance abuse: Status: Acute Assessment and plan: See above. History of Present Illness History of Present Illness Chief Complaint: Narcotic withdrawal Narrative: This 41-year-old male was brought to the hospital because of agitation, confusion. See his ER physician's report. He was picked up by the police late last night because of apparently violation of his curfew. He became somnolent in police custody and was given Narcan. EMS was called and the patient was brought to the hospital with considerable agitation and combativeness. He was given multiple doses of Versed, lorazepam, ketamine that eventually switched to propofol. External jugular vein was accessed for laboratory studies but eventually the patient pulled out. He was intubated after receiving etomidate and succinylcholine. An intraosseous line was placed and the patient eventually received femoral vein catheter for access. The patient was switched to Precedex for control of his agitation but he developed bradycardia and hypotension. He was then placed on norepinephrine to maintain his blood pressure. He received about 3 L of intravenous fluid bolus. Reynolds catheter was placed. A head CT and chest x-ray were done which were negative. A repeat chest x-ray was attempted but the patient got extremely agitated and then pulled his orogastric tube and endotracheal tube out in spite of his four-point restraints. He was managed in the emergency department from shortly after midnight to 6:30 AM. After the patient pulled ET tube out he was maintaining his oxygenation and protecting his airway. It was elected not to restart the endotracheal tube and mechanical ventilation. The patient currently is on norepinephrine and Precedex and intravenous fluids. He has a right lower leg intraosseous line, a right femoral vein triple-lumen catheter, and a Reynolds catheter. I did talk to his girlfriend Keiry at [phone]. She says that she works many hours and is not home much. He does live with her but she has not seen him much over the last week. She says this is not really unusual for him to come and go like this. She does not really know what he has been doing. In terms of family she says that he has children but he does not really see them. She thinks his youngest is a teenager around age 13. His father last year but she does not know anything about his mother. She says that for the most part she is his family. Review of Systems Narrative: Unable because of his mental status. [facility] All Active Problems (Updated 03/22/22 @ 05:32 by Kris Burnham MD) Cellulitis of finger of right hand (Acute) Agitation (Acute) Acute opioid withdrawal (Acute) Polysubstance abuse (Acute) Medical History Narcotic abuse in remission Surgical History No significant past surgical history Social History Smoking/Tobacco Use Status: Current every day Tobacco Type: cigarettes Smoking risk assessment performed?: Yes Alcohol Intake: never Drug use: Daily Substance use type: does not use Do you feel safe at home: Yes Do you feel safe in your relationship?: Yes Meds Allergies and Home Medications Allergies Allergy/AdvReac Type Severity Reaction Status Date / Time No Known Allergies Allergy Unverified 02/25/22 05:46 Home Medications Medication Instructions Recorded Confirmed Type Unknown [No Known Home Meds] 03/22/22 03/22/22 History Exam Const Other: He is combative at times and is noncommunicative. Eyes General: appearance normal, both eyes and all related structures Neck Neck: normal visual inspection, no lymphadenopathy, supple and no JVD Resp Effort & Inspection: normal respiratory effort Auscultation: clear to auscultation bilaterally Cardio Rate: bradycardic Rhythm: regular rhythm Heart Sounds: S1 normal, S2 normal, no gallops and no murmurs GI Palpation: soft, no hepatosplenomegaly and nontender Extrem General: normal to inspection, no clubbing, no cyanosis and no edema Results Labs Result diagrams: 03/22/22 00:50 03/22/22 00:50 Labs: Laboratory Results - last 24 hr 03/22/22 03/22/22 03/22/22 00:50 00:50 00:50 WBC 13.67 H RBC 4.91 Hgb 13.7 Hct 40.3 MCV 82 MCH 27.9 MCHC 34.0 RDW 12.0 Plt Count 473 H MPV 10.3 Immature Gran % 0.3 Neutrophils % 69.1 Lymphocytes % 22.3 Monocytes % 6.5 Eosinophils % 0.9 Basophils % 0.9 Nucleated RBC % 0.0 Absolute Neutrophils 9.45 H Absolute Lymphocytes 3.05 Absolute Monocytes 0.89 H Absolute Eosinophils 0.12 Absolute Basophils 0.12 VBG pH VBG pCO2 VBG pO2 VBG HCO3 VBG Total CO2 VBG O2 Saturation VBG Base Excess Sodium 139 Potassium 3.2 L Chloride 102 Carbon Dioxide 24.0 Anion Gap 13.0 H BUN 16 Creatinine 1.3 Est GFR (CKD-EPI 2020) 71.67 Glucose 134 H Calcium 9.2 Magnesium 1.9 Total Bilirubin 0.8 AST 23 ALT 18 Alkaline Phosphatase 90 Total Protein 8.0 Albumin 4.2 TSH 0.71 Urine Color Urine Clarity Urine pH Ur Specific [place] Urine Protein Urine Ketones Urine Blood Urine Nitrite Urine Bilirubin Urine Urobilinogen Ur Leukocyte Esterase Urine RBC Urine WBC Ur Epithelial Cells Urine Crystals Urine Bacteria Urine Mucus Urine Other Ur Culture Indicated? Urine Glucose Salicylates 3.5 Urine Opiates Screen Urine Methadone Screen Acetaminophen < 2 Ur Barbiturates Screen Ur Tricyclics Screen Ur Amphetamines Screen U Benzodiazepines Scrn Urine Cocaine Screen Ur THC Screen Ethyl Alcohol < 3.0 COVID-19 Source 03/22/22 03/22/22 03/22/22 02:25 02:25 02:25 WBC RBC Hgb Hct MCV MCH MCHC RDW Plt Count MPV Immature Gran % Neutrophils % Lymphocytes % Monocytes % Eosinophils % Basophils % Nucleated RBC % Absolute Neutrophils Absolute Lymphocytes Absolute Monocytes Absolute Eosinophils Absolute Basophils VBG pH 7.37 VBG pCO2 45 VBG pO2 225 VBG HCO3 26 VBG Total CO2 VBG O2 Saturation > 99 VBG Base Excess 1 Sodium Potassium Chloride Carbon Dioxide Anion Gap BUN Creatinine Est GFR (CKD-EPI 2020) Glucose Calcium Magnesium Total Bilirubin AST ALT Alkaline Phosphatase Total Protein Albumin TSH Urine Color Yellow Urine Clarity Sl Cloudy Urine pH 8.5 H Ur Specific [place] 1.020 Urine Protein >=300 H Urine Ketones 15 H Urine Blood Negative Urine Nitrite Negative Urine Bilirubin Small H Urine Urobilinogen 1.0 H Ur Leukocyte Esterase Negative Urine RBC 3-5 H Urine WBC 3-5 Ur Epithelial Cells Negative Urine Crystals Negative Urine Bacteria Moderate Urine Mucus Moderate Urine Other Rare Transitional Ur Culture Indicated? Yes Urine Glucose Negative Salicylates Urine Opiates Screen Positive A Urine Methadone Screen Negative Acetaminophen Ur Barbiturates Screen Negative Ur Tricyclics Screen Negative Ur Amphetamines Screen Negative U Benzodiazepines Scrn Negative Urine Cocaine Screen Positive A Ur THC Screen Negative Ethyl Alcohol COVID-19 Source 03/22/22 05:30 WBC RBC Hgb Hct MCV MCH MCHC RDW Plt Count MPV Immature Gran % Neutrophils % Lymphocytes % Monocytes % Eosinophils % Basophils % Nucleated RBC % Absolute Neutrophils Absolute Lymphocytes Absolute Monocytes Absolute Eosinophils Absolute Basophils VBG pH VBG pCO2 VBG pO2 VBG HCO3 VBG Total CO2 VBG O2 Saturation VBG Base Excess Sodium Potassium Chloride Carbon Dioxide Anion Gap BUN Creatinine Est GFR (CKD-EPI 2020) Glucose Calcium Magnesium Total Bilirubin AST ALT Alkaline Phosphatase Total Protein Albumin TSH Urine Color Urine Clarity Urine pH Ur Specific [place] Urine Protein Urine Ketones Urine Blood Urine Nitrite Urine Bilirubin Urine Urobilinogen Ur Leukocyte Esterase Urine RBC Urine WBC Ur Epithelial Cells Urine Crystals Urine Bacteria Urine Mucus Urine Other Ur Culture Indicated? Urine Glucose Salicylates Urine Opiates Screen Urine Methadone Screen Acetaminophen Ur Barbiturates Screen Ur Tricyclics Screen Ur Amphetamines Screen U Benzodiazepines Scrn Urine Cocaine Screen Ur THC Screen Ethyl Alcohol COVID-19 Source Nasal/Nares Last Vital Signs Temp 36.7 C 03/22/22 00:36 Pulse 54 L 03/22/22 05:21 Resp 18 03/22/22 03:51 BP 123/82 03/22/22 05:21 Pulse Ox 97 03/22/22 05:21
[2022-03-22 06:05] LABS: COVID-19 PCR Negative (Negative)
[2022-03-22] MEDS: dexmedeTOMidine IN 0.9 % NACL 400 MCG/100 ML BTL 20 MCG IV ×2 (07:03→08:16)
[2022-03-22 07:26] LABS: Anion Gap 7.3 mmol/L (3-11); BUN 13 mg/dL (7-18); CO2 27.7 mmol/L (21.0-32.0); Calcium 8.3 mg/dL (8.5-10.1); Chloride 107 mmol/L (98-107); Estimated GFR 98.18 (mL/min/1.73m2); Glucose 133 mg/dL (74-106); Potassium 3.5 mmol/L (3.5-5.1); Sodium 142 mmol/L (136-145)
[2022-03-22] MEDS: Lactated Ringers 1,000 ML 125 ML IV ×3 (07:58→23:36)
[2022-03-22] MEDS: Normal Saline Flush 10 ML SYR IVP ×2 (08:21→09:43)
--- NOTE | 2022-03-22 09:46 | W.PM.PROGNOT ---
Date of Service Date of service: 03/22/22 Time of Service: 09:46 Assessment and Plan Assessment and plan (1) Agitation: Status: Acute Assessment and plan: Patient required multiple medications to try to calm him in the ED including ketamine, lorazepam, midazolam, and propofol and was intubated in the ED but he self extubated. He is on Precedex at 1 mcg/kg/minute which is being weaned down (he was up to 1.5 when I got sign out from Dr. Vasquez). He is not hypotensive anymore and he remains off the norepinephrine and he is on room air w/ SPO2 OF 98%. Hopfefully we can wean him off the Precedex and if he is able to be coherent and cooperative we can withdraw the restraints and work towards liberation. 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 Professional time spent interviewing and examining patient, discussion of goals of care with hospital team (care management, nursing and consulting professionals) was 15 minutes. (2) Acute opioid withdrawal: Status: Acute Assessment and plan: Urine drug screen confirmation has been sent to identify the opiates in the urine. (3) Polysubstance abuse: Status: Acute Assessment and plan: See above. Subjective Subjective Interval history since last seen: Patient remains sedated on Precedex. See Dr. Vasquez's admission H&P from this morning and the ED department. Patient apparently was served a citation by [facility] for parole violation but was not under arrest, when he was picked up by [facility] he became somnolent when they gave him narcan at which point he became agitated. See ED notes for details. Exam Narrative Exam Narrative: Somnolent but without any respiratory distress. Vital signs are stable. Lungs are clear to auscultation Heart regular rate and rhythm Abdomen soft nondistended normal bowel sounds Objective Last Vital Signs Temp 36.7 C 03/22/22 08:29 Pulse 55 L 03/22/22 08:46 Resp 22 03/22/22 08:46 BP 114/72 03/22/22 08:46 Pulse Ox 97 03/22/22 08:46 Laboratory Results - last 24 hr 03/22/22 03/22/22 03/22/22 00:50 00:50 00:50 WBC 13.67 H RBC 4.91 Hgb 13.7 Hct 40.3 MCV 82 MCH 27.9 MCHC 34.0 RDW 12.0 Plt Count 473 H MPV 10.3 Immature Gran % 0.3 Neutrophils % 69.1 Lymphocytes % 22.3 Monocytes % 6.5 Eosinophils % 0.9 Basophils % 0.9 Nucleated RBC % 0.0 Absolute Neutrophils 9.45 H Absolute Lymphocytes 3.05 Absolute Monocytes 0.89 H Absolute Eosinophils 0.12 Absolute Basophils 0.12 VBG pH VBG pCO2 VBG pO2 VBG HCO3 VBG Total CO2 VBG O2 Saturation VBG Base Excess Sodium 139 Potassium 3.2 L Chloride 102 Carbon Dioxide 24.0 Anion Gap 13.0 H BUN 16 Creatinine 1.3 Est GFR (CKD-EPI 2020) 71.67 Glucose 134 H Calcium 9.2 Magnesium 1.9 Total Bilirubin 0.8 AST 23 ALT 18 Alkaline Phosphatase 90 Total Protein 8.0 Albumin 4.2 TSH 0.71 Urine Color Urine Clarity Urine pH Ur Specific [place] Urine Protein Urine Ketones Urine Blood Urine Nitrite Urine Bilirubin Urine Urobilinogen Ur Leukocyte Esterase Urine RBC Urine WBC Ur Epithelial Cells Urine Crystals Urine Bacteria Urine Mucus Urine Other Ur Culture Indicated? Urine Glucose Salicylates 3.5 Urine Opiates Screen Urine Methadone Screen Acetaminophen < 2 Ur Barbiturates Screen Ur Tricyclics Screen Ur Amphetamines Screen U Benzodiazepines Scrn Urine Cocaine Screen Ur THC Screen Ethyl Alcohol < 3.0 COVID-19 Source SARS-CoV-2 (PCR) 03/22/22 03/22/22 03/22/22 02:25 02:25 02:25 WBC RBC Hgb Hct MCV MCH MCHC RDW Plt Count MPV Immature Gran % Neutrophils % Lymphocytes % Monocytes % Eosinophils % Basophils % Nucleated RBC % Absolute Neutrophils Absolute Lymphocytes Absolute Monocytes Absolute Eosinophils Absolute Basophils VBG pH 7.37 VBG pCO2 45 VBG pO2 225 VBG HCO3 26 VBG Total CO2 VBG O2 Saturation > 99 VBG Base Excess 1 Sodium Potassium Chloride Carbon Dioxide Anion Gap BUN Creatinine Est GFR (CKD-EPI 2020) Glucose Calcium Magnesium Total Bilirubin AST ALT Alkaline Phosphatase Total Protein Albumin TSH Urine Color Yellow Urine Clarity Sl Cloudy Urine pH 8.5 H Ur Specific [place] 1.020 Urine Protein >=300 H Urine Ketones 15 H Urine Blood Negative Urine Nitrite Negative Urine Bilirubin Small H Urine Urobilinogen 1.0 H Ur Leukocyte Esterase Negative Urine RBC 3-5 H Urine WBC 3-5 Ur Epithelial Cells Negative Urine Crystals Negative Urine Bacteria Moderate Urine Mucus Moderate Urine Other Rare Transitional Ur Culture Indicated? Yes Urine Glucose Negative Salicylates Urine Opiates Screen Positive A Urine Methadone Screen Negative Acetaminophen Ur Barbiturates Screen Negative Ur Tricyclics Screen Negative Ur Amphetamines Screen Negative U Benzodiazepines Scrn Negative Urine Cocaine Screen Positive A Ur THC Screen Negative Ethyl Alcohol COVID-19 Source SARS-CoV-2 (PCR) 03/22/22 03/22/22 05:30 07:06 WBC RBC Hgb Hct MCV MCH MCHC RDW Plt Count MPV Immature Gran % Neutrophils % Lymphocytes % Monocytes % Eosinophils % Basophils % Nucleated RBC % Absolute Neutrophils Absolute Lymphocytes Absolute Monocytes Absolute Eosinophils Absolute Basophils VBG pH VBG pCO2 VBG pO2 VBG HCO3 VBG Total CO2 VBG O2 Saturation VBG Base Excess Sodium 142 Potassium 3.5 Chloride 107 Carbon Dioxide 27.7 Anion Gap 7.3 BUN 13 Creatinine 1.0 Est GFR (CKD-EPI 2020) 98.18 Glucose 133 H Calcium 8.3 L Magnesium Total Bilirubin AST ALT Alkaline Phosphatase Total Protein Albumin TSH Urine Color Urine Clarity Urine pH Ur Specific [place] Urine Protein Urine Ketones Urine Blood Urine Nitrite Urine Bilirubin Urine Urobilinogen Ur Leukocyte Esterase Urine RBC Urine WBC Ur Epithelial Cells Urine Crystals Urine Bacteria Urine Mucus Urine Other Ur Culture Indicated? Urine Glucose Salicylates Urine Opiates Screen Urine Methadone Screen Acetaminophen Ur Barbiturates Screen Ur Tricyclics Screen Ur Amphetamines Screen U Benzodiazepines Scrn Urine Cocaine Screen Ur THC Screen Ethyl Alcohol COVID-19 Source Nasal/Nares SARS-CoV-2 (PCR) Negative
[2022-03-22] MEDS: Enoxaparin 40 MG/0.4 ML SYR SC (10:38)
--- NOTE | 2022-03-22 15:39 | PHA.REVIEW2 ---
Pharmacy Admission Review - Admission Clinical Review (Last Reviewed 02/25/22 @ 06:24 by Acosta Kong DO) Agitation (Acute) Acute opioid withdrawal (Acute) Polysubstance abuse (Acute) No Known Allergies Allergy (Unverified 02/25/22 05:46) Resuscitation Status Full Code Weight 80 kg - Renal Dosing Renal Dosing: BUN 13 mg/dL (7-18) 03/22/22 07:06 Creatinine 1.0 mg/dL (0.70-1.30) 03/22/22 07:06 Medications needing adjustments: Reviewed (Crcl ~112 mL/min current meds okay) - Anticoagulation Anticoagulation: Hgb 13.7 g/dL (13.5-17.5) 03/22/22 00:50 Hct 40.3 % (40.0-50.0) 03/22/22 00:50 Plt Count 473 10^3/uL (130-400) H 03/22/22 00:50 Creatinine 1.0 mg/dL (0.70-1.30) 03/22/22 07:06 DVT Prophylaxis: Reviewed Medications: Enoxaparin Therapeutic Anticoagulation: N/A - Opiate Usage Evaluate Pain Scale/Pains Meds: N/A - Relevant Labs Sodium 142 mmol/L (136-145) 03/22/22 07:06 Potassium 3.5 mmol/L (3.5-5.1) 03/22/22 07:06 Chloride 107 mmol/L (98-107) 03/22/22 07:06 Magnesium 1.9 mg/dL (1.8-2.4) 03/22/22 00:50 Electrolytes, C-Reactive P, ESR: Reviewed - DM Control DM Control: Glucose 133 mg/dL (74-106) H 03/22/22 07:06 DM Control: Reviewed (no DM noted in medical history, no A1c on file) - Cardiac Review BP, HR, EF%: Reviewed (HR has been up and down some this admission) - Qtc Review QTc: N/A - IV to PO Switch IV Medications: Reviewed - Home Meds Home Med List reviewed: Reviewed (no known home meds) - Current meds Current Medication Order Review: Intervened (Discontinued a duplicate med order and one time doses that had already been given.) - Comments Comments/Follow Ups: Watch HR, labs and for med changes.
[2022-03-23 00:01] VITALS: BP 153/93; PULSE 52; PULSE 68; RESP 32; O2SAT 98
[2022-03-23 03:50] VITALS: PULSE 58; RESP 14; TEMP 36.5; O2SAT 100
[2022-03-23] MEDS: Lactated Ringers 1,000 ML 125 ML IV (07:12)
--- NOTE | 2022-03-23 08:53 | INITIAL_ITS ---
- If Service Date Differs Date of service: 03/23/22 Time of Service: 08:53 Care Management Initial Assess REASON FOR HOSPITALIZATION:: Agitation and confusion PAST MEDICAL HISTORY/PAST SURGICAL HISTORY:: All Active Problems (Updated 03/22/22 @ 05:32 by Kris Burnham MD). Cellulitis of finger of right hand (Acute). Agitation (Acute). Acute opioid withdrawal (Acute). Polysubstance abuse (Acute). Medical History . Narcotic abuse in remission. Surgical History . No significant past surgical history PREVIOUS FUNCTIONAL STATUS/SOCIAL/FAMILY SUPPORTS:: Zane lives in an apartment in [facility] with his girlfriend Keiry. He has 4 children but rarely sees them. Zane is not curreently emploiyed and does not receive any community services. He is independent at baseline. CURRENT FUNCTIONAL STATUS:: Zane was lying in bed when CM met with him. He was successfully extubated this morning and expects to be discharged later today. A silver recovery operator was contacted by [facility] and came to meet with Zane this morning but he declined her services. ADVANCE DIRECTIVES:: none on file Has patient been provided with info about the portal/API?: Yes Did the patient sign up for the portal?: No CODE STATUS:: Full Code INSURANCE COVERAGE / FINANCIAL ISSUES:: Medicaid CURRENT HOME/COMMUNITY SERVICES/EQUIPMENT:: none PRIMARY CARE PHYSICIAN:: Vipin Beaver POTENTIAL DISCHARGE NEEDS:: follow up with PCP and plan of care PATIENT/FAMILY EDUCATION NEEDS:: Review of dischgarge instructions, limitations, follow up plan, Ask Me Three TRANSPORTATION:: via private vehicle vs RCT PLAN:: Zane will be discharged home with no new services although he would likely benefit from substance use treatment. He will follow up with his community providers and plan of care and transport with Keiry. CM will support Zane and assess for discharge planning concerns.
[2022-03-23 08:56] VITALS: BP 137/75; PULSE 80; RESP 16; TEMP 37.5; O2SAT 100
--- NOTE | 2022-03-23 09:14 | DSE_ITS ---
Date of service: 03/23/22 Time of Service: 09:14 DS: Diagnosis Discharge Diagnosis (1) Agitation: Status: Acute (2) Acute opioid withdrawal: Status: Acute (3) Polysubstance abuse: Status: Acute Discharge Plan Disposition Patient Disposition: Home Condition: Improving Discharge Details Reason For Visit: Altered Mental Status, cocaine abuse Admit Date/Time: 03/22/22 05:33 Admit Provider: Darnell Vasquez Attending Provider: Darnell Vasquez Primary Care Provider: Vipin Beaver Hospital Course Hospital Course: This 41-year-old male was brought to the hospital because of agitation, confusion. He was picked up by the police because of apparently violation of his curfew.? He became somnolent in police custody and was given Narcan.? EMS was called and the patient was brought to the hospital with considerable agitation and combativeness.? He was given multiple doses of Versed, lorazepam, ketamine that eventually switched to propofol.? External jugular vein was accessed for laboratory studies but eventually the patient pulled that line out.? He was intubated after receiving etomidate and succinylcholine.? An intraosseous line was placed and the patient eventually received femoral vein catheter for access.? The patient was switched to Precedex for control of his agitation but he developed bradycardia and hypotension.? He was then placed on norepinephrine to maintain his blood pressure.? He received about 3 L of intrave nous fluid bolus.? Reynolds catheter was placed.? A head CT and chest x-ray were done which were negative.? A repeat chest x-ray was attempted but the patient got extremely agitated and then pulled his orogastric tube and endotracheal tube out in spite of his four-point restraints.? He was managed in the emergency department from shortly after midnight to 6:30 AM.? After the patient pulled ET tube out he was maintaining his oxygenation and protecting his airway.? It was elected not to restart the endotracheal tube and mechanical ventilation.? The patient currently is on norepinephrine and Precedex and intravenous fluids.? He has a right lower leg intraosseous line, a right femoral vein triple-lumen catheter, and a Reynolds catheter. Hospitalist spoke with his girlfriend Keiry at [phone].? She stated that she works many hours and is not home much.? He does live with her but she has not seen him much over the last week.? She also stated this was not really unusual for him to come and go like this.? She does not really know what he has been doing.? In terms of family she says that he has children but he does not really see them.? She thinks his youngest is a teenager around age 13.? His father last year but she does not know anything about his mother.? She says that for the most part she is his family. The following AM he was cooperative. He appeared fatigued but was oriented. He had an appetite. Care managment involved. He will follow up with community providers. Encourage him to engage in substance use treatments. ? Home Meds and New Rx's Prescriptions: No Action No Known Home Meds Discharge Instructions Activity:: Activity as Tolerated Equipment/Supplies:: No Equipment Needed Diet:: resume usual diet Discharge Orders Discharge Orders: Discharge Order (Routine); Ordered 03/23/22 Ordered By: Kris Wang DS: Summary Time Spent with Patient providing and/or coordinating discharge services: Less than 30 minutes Status at Discharge Functional status at discharge: independent ambulation Overall status at discharge: patient is progressing back to baseline Mental Status: mental status grossly normal Speech and Movement: speech clear Mood: euthymic mood Affect: blunted Exam Narrative Exam Narrative: Gen: appears tires. Interacitve. Lungs are clear to auscultation Heart regular rate and rhythm Abdomen soft nondistended normal bowel sounds Psych: affect is blunted. Oriented x 3. Psych Mental Status: mental status grossly normal Speech and Movement: speech clear Mood: euthymic mood Affect: blunted DS: Data Vitals/I&O Vitals and I&O: Vital Signs Temperature 37.5 C 03/23/22 08:56 Temperature Source Temporal Artery Scan 03/23/22 08:56 Pulse 80 03/23/22 08:56 Pulse Rhythm Regular 03/23/22 08:56 Pulse 68 03/23/22 00:01 Respiratory Rate 16 03/23/22 08:56 Respiratory Effort 03/23/22 08:56 Respiratory Depth Normal 03/23/22 08:56 Respiratory Pattern Normal 03/23/22 08:56 Blood Pressure 137/75 03/23/22 08:56 Blood Pressure Mean 108 03/23/22 00:01 Blood Pressure Position Sitting 03/22/22 08:29 Pulse Oximetry 100 03/23/22 08:56 Respiratory End-tidal CO2 63 03/22/22 06:00 Oxygen Delivery Method Room Air 03/23/22 08:56 Oxygen Flow Rate 0 03/23/22 08:56 Fraction of Inspired Oxygen (FIO2) 40 03/22/22 03:07 Pain Level 0 03/23/22 08:56 Comment 03/22/22 00:46 Intake & Output 03/22/22 03/22/22 03/23/22 11:59 23:59 11:59 Intake Total 3097.533 / 5091.700 1993.167 / 5091.700 990 / 990 Output Total 950 / 1150 200 / 1150 1000 / 1000 Balance 2147.533 / 3941.700 1794.167 / 3941.700 -10 / -10 Weight 80 kg 80 kg 76.9 kg Intake: IV 3097.533 / 5091.700 1993.167 / 5091.700 990 / 990 Output: Urine 950 / 1150 200 / 1150 1000 / 1000 Other: Urine Color Yellow Dark Majo Light Majo Urine Appearance Clear Clear Clear Urine Odor Normal Normal Comment Reynolds bag in. 550 emptied at this time. Reynolds out, pt has no issues voiding. mixed with stool Stool Size Large Large Stool Characteristics Brown Liquid Brown Voiding Methods Bedpan Data Completed and Pending Labs on day of discharge: Preliminary micro results at discharge 03/22/22 02:25 Urine Culture - Preliminary Urine - Reflex from [facility] All Active Problems Cellulitis of finger of right hand (Acute) Agitation (Acute) Acute opioid withdrawal (Acute) Polysubstance abuse (Acute) Medical History Narcotic abuse in remission Surgical History No significant past surgical history Social History Smoking/Tobacco Use Status: Current every day Tobacco Type: cigarettes Smoking risk assessment performed?: Yes Alcohol Intake: never Drug use: Daily Substance use type: does not use Do you feel safe at home: Yes Do you feel safe in your relationship?: Yes Time Spent with Patient Time Spent with Patient: <45 minutes Time was spent: preparing to see the patient(eg.review tests), obtaining and/or reviewing separately otained hiistory and ordering medications,tests, procedures
[2022-03-23] MEDS: Enoxaparin 40 MG/0.4 ML SYR SC (09:44)
--- NOTE | 2022-03-23 13:15 | NUR.NOTE ---
Discharge order obtained. Clothing found to be cut up. Shorts, underwear and jeans obtained by Care Management. Discharge paperwork reviewed with patient and his girlfriend. Girlfriend requesting copies of patients medical records. Care Management made aware. Instructed to contact Medical Records department after discharge. Escorted out by RN. Nursing Note:
--- NOTE | 2022-03-23 14:11 | PDOC.CMDIS ---
- If Service Date Differs Date of service: 03/23/22 Time of Service: 14:11 LACE Index Scoring Tool - Questions: Length of Stay (in days): 1 Acuity (Admit via E.D.?): Yes E.D. Visits: 3 - Answers: Total Score: 7 Risk of Readmission: Low Risk Care Management Discharge Reason for Hospitalization: Agitation and confusion Discharge Plan: Zane will be discharged home with no new services although he would likely benefit from substance use treatment. He will follow up with his community providers and plan of care and transport with Keiry. Patient/Family Education Needs: Review of dischgarge instructions, limitations, follow up plan, Ask Me Three
[2022-03-26 16:42] LABS: Codeine Negative ng/mL (Cutoff: 25); Dihydrocodeine Negative ng/mL (Cutoff: 25); Hydrocodone Negative ng/mL (Cutoff: 25); Hydromorphone Negative ng/mL (Cutoff: 25); Naloxone 15022 ng/mL (Cutoff: 25); Norhydrocodone Negative ng/mL (Cutoff: 25); Noroxycodone Negative ng/mL (Cutoff: 25); Noroxymorphone 110 ng/mL (Cutoff: 25); Opiates Interpretation Positive.
== END 2022-03-23 13:05 | disposition home or self-care (01) | DRG 897 ==
LOC: ER 06:26 → ICU 06:31
PROVIDERS: Admitting Provider Family Medicine; Emergency Provider Emergency Medicine; PCP Internal Medicine; Visit Provider Family Medicine
DX: F11.13 Opioid abuse with withdrawal (principal); R45.1 Restlessness and agitation; R41.0 Disorientation, unspecified; F19.10 Other psychoactive substance abuse, uncomplicated; Z78.1 Physical restraint status; F17.210 Nicotine dependence, cigarettes, uncomplicated; F14.10 Cocaine abuse, uncomplicated
CPT/HCPCS: 31500; 36415; 36416; 36555; 36556; 51702; 71045; 80048; 80053; 80307; 80361; 80362; 80365; 82805; 82962; 87635; 96361; 96365; 96366; 96375; 99285; J1650; 70450; 80320; 80329; 81003; 81015; 83735; 84443; 85025; 87086; 99223; 99238; J2060; J2405

== ENCOUNTER 2023-12-20 08:50 | Day surgery (SDC) | payer OTHER, SELFPAY ==
--- NOTE | 2023-12-19 10:07 | W.PM.DSUDISC ---
Date of service: 12/20/23 Time of Service: 11:50 Discharge Plan Disposition Patient Disposition: Home Discharge Details Reason For Visit: right inguinal hernia repair Attending Provider: Kasey Travis Primary Care Provider: Vipin Beaver Home Meds and New Rx's Prescriptions: New apixaban 5 mg tablet 5 mg PO Q12H Qty: 60 0RF apixaban 5 mg tablet 5 mg PO BID Qty: 60 0RF Continued melatonin 3 mg capsule 6 mg PO HS PRN acetaminophen [Tylenol] 325 mg capsule 650 mg PO TID PRN ibuprofen 600 mg tablet 600 mg PO Q8H PRN hydroxyzine HCl 25 mg tablet 25 mg PO DAILY buprenorphine-naloxone 8-2 mg tablet, sublingual 3 tab sublingual DAILY Discharge Instructions Additional Instructions: -Patient was found to be in atrial fibrillation. He has no history of A-fib and denies any substances other than his regular medications. He had not received anesthesia yet the case will be canceled and patient will need to see cardiology for workup for A-fib. -Patient should be started on blood thinners- apixaban BID. This medication will cause bruising and bleeding. Activity:: Activity as Tolerated Diet:: As Tolerated Discharge Orders Discharge Orders: Discharge Order (Routine); Ordered 12/19/23 Ordered By: Kasey Travis DS: Diagnosis Discharge Diagnosis (1) Polysubstance abuse: Status: Acute (2) Inguinal hernia of right side without obstruction or gangrene: Status: Acute (3) Narcotic abuse in remission: (4) Atrial fibrillation with controlled ventricular rate: Status: Acute
--- NOTE | 2023-12-19 10:11 | HPE_ITS ---
Date of service: 12/20/23 Time of Service: 11:29 Assessment and Plan Assessment and plan (1) Polysubstance abuse: Status: Acute (2) Inguinal hernia of right side without obstruction or gangrene: Status: Acute Assessment and plan: I discussed the nature of inguinal hernias with the patient: how they form, and consequences of incarceration.? ?I discussed the surgery in detail and the complications related to the surgery and the anesthesia.? I do recommend that the pt have a nerve block for postop pain control.? We also discussed multi- modality pain management.? Pt. expressed understanding; all questions were answered to the patient satisfaction and they do wish to proceed with surgery.? Patient expressed understanding of how to care for themselves after surgery. Risks of the surgery include but are not limited to: Bleeding/infection/pneumonia/damage to blood vessels or bladder or?bowels/blood clots or PE/chronic pain/urinary retention/chronic numbness/reoccurrence/reaction to mesh requiring removal/damage to testicle or sterility/complications of anesthesia.?We also discussed the possibility of postop urinary retention and swelling/ bruising. ??The procedure will be done with abx and under sterile conditions. This is an outpt day surgery.? ?? Arrangements will be made thru the halfway. stressed importance of avoiding straining to move bowels and ? No lifting over 5 pounds for 2-3 weeks after surgery.? Also take Miralax postop to avoid constipation. (3) Narcotic abuse in remission: History of Present Illness Narrative: Patient is here today for right inguinal hernia repair. Hernia has been about the same. No severe pain today.? They not having any chest pain or shortness of breath, currently.? They are not experiencing any fever or chills.? They deny any productive cough or upper respiratory tract infection signs or symptoms.? They are not having abdominal pain, or nausea and vomiting.? They have not had any changes in medications, past medical history or past surgical history since previously being seen in the office. They have not had any accidents or have been in the ER since the clinic pre-operative evaluation. ??I reviewed the procedure with the patient today, including risks and benefits of the procedure, and what they could expect at home for recovery.? All questions are answered to the patient?s satisfaction today, and they are stable to proceed with the proposed procedure. Patient is currently incarcerated. RN: Pt reports he noticed this hernia sometime in May as he had pain in the right groin area. Pt reports moves bowels everyday. Pain level today is a 5/10. Pt has been having pain and aching since may. Bothers him when he does working or standing on concrete. Denies constipation or straining to move bowels. Has been in halfway. for over a year. will be in halfway for another 6 months. He would like to have repair done now. Tobacco- 1ppd etoh- no PHMX polysubstance abuse denies mi/cva no blood thinners no asthma /COPD PShx vasectomy no problems anesthesia. CT 09/30/23 Lung Bases: Patchy infiltrates seen in the right middle lobe and posterior right lower lobe. Liver: Normal density. No suspicious mass. Gallbladder and biliary tract: No radiodense calculus. No biliary dilation. Pancreas: Normal density. No abnormal calcifications or inflammatory process. No evidence of mass. Spleen: Normal. Kidneys: Normal size, contour and axis. No radiodense stones. No obstructive uropathy. No suspicious masses seen. Adrenal glands: No masses seen. Vasculature: Abdominal aorta non-dilated. Soft tissues: Small right inguinal hernia containing fat and small amount of fluid. Bladder: No gross wall thickening. No calculi.No focal mass. Bowel: No obstruction. No bowel wall thickening. Appendix normal. Peritoneal cavity: No ascites. No focal collection. No mesenteric inflammatory response. Bones: Unremarkable for age. Reproductive organs: Unremarkable. Vasectomy clips. Lymph nodes: No pathologically enlarged lymph nodes. IMPRESSION:: Right middle and left lower lobe infiltrate suspicious for pneumonia. Small right inguinal hernia containing fat and fluid. Review of Systems All systems reviewed & are unremarkable except as noted in HPI and below PFSH All Active Problems Inguinal hernia of right side without obstruction or gangrene (Acute) Polysubstance abuse (Acute) Medical History Narcotic abuse in remission Surgical History (Updated 12/20/23 @ 09:16 by Jazzy Rodriguez RN) H/O vasectomy No significant past surgical history Social History Smoking/Tobacco Use Status: Former Tobacco Use Smoking risk assessment performed?: Yes Alcohol Intake: former Drug use: Current Sobriety Substance use type: former substance user Housing: other Additional [facility] Med[facility] Allergies and Home Medications Allergies Allergy/AdvReac Type Severity Reaction Status Date / Time No Known Allergies Allergy Verified 12/20/23 09:16 Home Medications ?Medication ?Instructions ?Recorded ?Confirmed ?Type acetaminophen 325 mg capsule 650 mg PO TID PRN 11/03/23 12/20/23 History (Tylenol) ibuprofen 600 mg tablet 600 mg PO Q8H PRN 11/03/23 12/20/23 History melatonin 3 mg capsule 6 mg PO HS PRN 11/03/23 12/20/23 History buprenorphine 8 mg-naloxone 2 mg 3 tab sublingual DAILY 12/16/23 12/20/23 History sublingual tablet hydroxyzine HCl 25 mg tablet 25 mg PO DAILY 12/16/23 12/20/23 History gabapentin 300 mg capsule 300 mg PO TID 10 days #30 caps 12/19/23 Rx ketorolac 10 mg tablet 10 mg PO TID 5 days #15 tabs 12/19/23 Rx Exam Narrative Exam Narrative: PHYSICAL EXAM GENERAL APPEARANCE: Alert, healthy appearance, oriented, x 3,? in no acute distress HYDRATION: Well hydrated HEAD, EYES, EARS, NECK, THROAT: Head is normocephalic, pupils equal, round, reactive to light and accommodation, ocular movement intact, sclera clear and no jaundice. ?Dentition intact. LUNGS: normal respiration/normal chest excursion. ?Clear to auscultation bilaterally. ?No wheeze. ?HEART: Regular rate and rhythm. no murmurs ABDOMEN: soft and non-tender to palpation.? Normal bowel sounds.? right inguinal hernia -no pain or redness. Site marked. Time Spent Time spent with Patient: <40 minutes Time was spent: preparing to see the patient(eg.review tests), obtaining and/or reviewing separately otained hiistory, ordering medications,tests, procedures, referring, communicating with other health childcare worker, indepentently interpreting results, counseling the patient, care coordination and other
--- NOTE | 2023-12-20 07:14 | W.ANESPRE ---
General Info Date of Service Date Performed: 12/20/23 Height: 6 ft 2 in Weight: 110.223 kg Body Mass Index (BMI): 31.1 Surgical Procedure: Operation Date: 12/20/23 10:40 Proposed Procedure Side Surgeon p Open right inguinal hernia repair with mesh Right Kasey Travis DO Meds Allergies and Home Medications Allergies Allergy/AdvReac Type Severity Reaction Status Date / Time No Known Allergies Allergy Verified 12/20/23 09:16 Home Medication ?Medication ?Instructions ?Recorded acetaminophen 325 mg capsule 650 mg PO TID PRN 11/03/23 (Tylenol) ibuprofen 600 mg tablet 600 mg PO Q8H PRN 11/03/23 melatonin 3 mg capsule 6 mg PO HS PRN 11/03/23 buprenorphine 8 mg-naloxone 2 mg 3 tab sublingual DAILY 12/16/23 sublingual tablet hydroxyzine HCl 25 mg tablet 25 mg PO DAILY 12/16/23 gabapentin 300 mg capsule 300 mg PO TID 10 days #30 caps 12/19/23 ketorolac 10 mg tablet 10 mg PO TID 5 days #15 tabs 12/19/23 Current Visit Medications: Current Medications Generic Name Dose Route Start Last Admin Trade Name Freq PRN Reason Stop Dose Admin Acetaminophen 1,000 mg 12/20/23 06:00 Acetaminophen 500 Mg Tab PO 01/18/24 23:59 PREOP MICHAEL Gabapentin 600 mg 12/20/23 06:00 Gabapentin 300 Mg Cap PO 01/18/24 23:59 PREOP MICHAEL Ringer's Solution 1,000 mls @ 80 mls/hr 12/20/23 06:00 IV 01/18/24 23:59 INFUSION MICHAEL Cefazolin Sodium/Dextrose 2 gm in 50 mls @ 100 mls/hr 12/20/23 06:00 Ancef Duplex IVPB 01/18/24 23:59 PREOP MICHAEL Ondansetron HCl 4 mg/ Sodium 52 mls @ 200 mls/hr 12/19/23 10:06 Chloride IVPB 01/18/24 10:05 Q6H PRN PRN IV Miscellaneous Supplies 1 each 12/20/23 06:00 Iv Access IV 01/18/24 23:59 DIRECTED MICHAEL Morphine Sulfate 2 mg 12/19/23 10:06 Morphine 4 Mg/Ml Syr IVP 01/18/24 10:05 Q1H PRN PRN Sodium Chloride 0 ml 12/20/23 06:00 Normal Saline Flush 10 Ml Syr IV 01/18/24 23:59 PRN PRN Sodium Chloride 0 ml 12/20/23 06:00 Normal Saline 10 Ml Vial IJ 01/18/24 23:59 DIRECTED PRN Sterile Water 0 ml 12/20/23 06:00 Water,Injection,Sterile 10 Ml Vial IJ 01/18/24 23:59 DIRECTED PRN Tramadol HCl 50 mg 12/19/23 10:06 Tramadol 50 Mg Tab PO 01/18/24 10:05 Q6H PRN PRN Pain PFSH Active Problems Active Problems: Problem Status Onset Code Inguinal hernia of right side without obstruction or gangrene Acute K40.90 Polysubstance abuse Acute F19.10 Medical History Medical History Narcotic abuse in remission Surgical History Surgical History No significant past surgical history Tobacco Smoking/Tobacco Use Status: Former Tobacco Use Alcohol Alcohol Intake: former Substance Use Substance use: Current Sobriety Substance use type: former substance user Vital Signs and Lab Results Vital Signs Most Recent Vital Signs in EMR: Temp Pulse Resp BP Pulse Ox 36.1 C L 69 16 136/97 H 98 12/20/23 09:03 12/20/23 09:03 12/20/23 09:03 12/20/23 09:03 12/20/23 09:03 Lab Results Blood Type / Crossmatch: No Data to Display Complete Blood Count: No Data to Display Complete Metabolic Panel: No Data to Display Liver Function Panel: No Data to Display Coagulation Panel: No Data to Display Cardiac Panel: No Data to Display Arterial Blood Gas: No Data to Display Venous Blood Gas: No Data to Display Pancreas Panel: No Data to Display Thyroid Panel: No Data to Display Infectious Disease: No Data to Display Blood Cultures: No Data to Display Toxicology Panel: No Data to Display Imaging and Studies Imaging and Studies Study information below may be from another EMR and interpreted by another provider. Please see original notes in EMR for more complete details. EKG Summary: 11/08: sinus hortencia. Anesthesia Assessment and Plan Anesthesia History Personal History: Unknown Anesthesia History Family History: Family History Unknown Exercise Tolerance Exercise Tolerance: Metabolic Equivalents>4 Pertinent Negatives Pertinent Negatives: No Symptoms of GERD Cardiac & Pulmonary Exam Cardiac Exam: Normal S1/S2 Heart Sounds Pulmonary Exam: Clear Bilateral Breath Sounds Implantable Cardiac Device Does patient have a Pacemaker or an ICD?: No Airway Exam Known Difficult Airway: No Mallampati Class: 3 Mouth Opening: Normal (> 3cm) Thyromental Distance: Greater than 3 cm Neck Range of Motion: Full ROM Neck Circumference: Normal Teeth Condition: Normal Dentition ASA Classification ASA Score: ASA 2 Emergency Case?: No NPO Status NPO Status: NPO Clears >2 hours, Solids >8 hours Anesthesia Plan Resuscitation Status: Full Code Anesthesia Technique: General Anesthesia Airway Planned: LMA Monitors Used: Standard Monitors Preoperative Comments:: 43 yo male for hernia repair. Sig PMHx: former smoker, former substance abuse (buprenorphine/naloxone). Denies GERD appropriately NPO.
[2023-12-20 07:17] VITALS: BMI 31.1
[2023-12-20 09:03] VITALS: BP 136/97; PULSE 69; RESP 16; TEMP 36.1; O2SAT 98
[2023-12-20] MEDS: Acetaminophen 500 MG TAB 1000 MG PO (09:12)
[2023-12-20] MEDS: Gabapentin 300 MG CAP 600 MG PO (09:12)
[2023-12-20] MEDS: Lactated Ringers 1,000 ML 80 ML IV (09:23)
--- NOTE | 2023-12-20 11:45 | RT.EKG_ITS ---
APPROVED REPORT Exam: Resting ECG Reason for Exam: new onset a fib Patient Location: O HR:61 bpm ECG Measurements Heart Rate 61 AXIS TX [id number] P [id number] QRSd 97 QRS 27 QT 425 T 19 QTc 429 Conclusion Atrial fibrillation...V-rate 60- 63, irreg A-activity
[2023-12-20 11:54] VITALS: BP 139/88; PULSE 52; RESP 14; TEMP 36.3; O2SAT 99
--- NOTE | 2023-12-20 12:00 | W.ANESPOSTOP ---
Postoperative Evaluation Date, Time and Location Date Performed: 12/20/23 Time Performed: 12:00 Patient Location: Day Surgery Unit Vital Signs Most Recent Imported Vital Signs: Most Recent Vital Signs Temp Pulse Resp BP Pulse Ox 36.1 C L 69 16 136/97 H 98 12/20/23 09:03 12/20/23 09:03 12/20/23 09:03 12/20/23 09:03 12/20/23 09:03 Pain Score Most Recent Pain Score: Most Recent Pain Score Pain Level 0 12/20/23 09:03 Assessment Mental Status: Awake (Alert & Oriented to Patient Baseline) Airway and Respiratory Function: Patent airway with normal (patient baseline) respiratory exam Cardiovascular Function: Hemodynamically Stable Hydration Status: Adequately Hydrated Nausea & Vomiting: No Nausea or Vomiting Pain: Pt. Denies Any Pain Peripheral Nerve Block: Patient did not receive a nerve block Teaching Patient Teaching: Advised to seek followup for the following concerns (See explanation) Concerns: New Onset Atrial Fibrillation Postoperative Comments:: Discussed afib and implication of it. Advised that he needs to have this followed up with his PCP.
[2023-12-20] MEDS: Aspirin 81 MG CHEW PO (12:10)
[2023-12-20 12:25] LABS: Abs Immature Grans 0.02 10^3/uL (0.0-0.06); Absolute Basophil Count 0.05 10^3/uL (0.0-0.2); Absolute Eosinophil Count 0.13 10^3/uL (0.0-0.7); Absolute Lymphocyte Count 1.88 10^3/uL (1.2-3.4); Absolute Monocyte Count 0.38 10^3/uL (0.1-0.8); Absolute Neutrophil Count 3.49 10^3/uL (1.2-6.7); Basophils % 0.8 %; Eosinophils % 2.2 %; HCT 44.1 % (40.0-50.0); HGB 14.4 g/dL (13.5-17.5); Immature Grans % 0.3 %; Lymphocytes % 31.6 %; MCH 28.7 pg (27.0-33.0); MCHC 32.7 % (32.0-36.0); MCV 88 fL (80-95); MPV 10.9 fL (8.0-11.0); Monocytes % 6.4 %; Neutrophils % 58.7 %; Platelet Count 227 10^3/uL (130-400); RBC 5.02 10^6/uL (4.36-5.78); RDW 12.7 % (11.8-14.1); RDW-SD 41.1 fL; WBC 5.95 10^3/uL (4.4-10.8)
[2023-12-20 12:42] LABS: Prothrombin Time 10.3 sec (9.1-11.1)
[2023-12-20 12:43] LABS: Hemoglobin A1C 5.6 % (<5.7)
[2023-12-20 13:04] LABS: ALT 36 U/L (16-63); AST 26 U/L (15-37); Albumin 3.7 g/dL (3.4-5.0); Alkaline Phosphatase 74 U/L (46-116); Anion Gap 5.3 mmol/L (3-11); BUN 18 mg/dL (7-18); Bilirubin, Total 0.51 mg/dL (0.2-1.0); CO2 29.7 mmol/L (21.0-32.0); Calcium 8.6 mg/dL (8.5-10.1); Chloride 103 mmol/L (98-107); Estimated GFR 96.97 (mL/min/1.73m2); Glucose 102 mg/dL (74-106); Magnesium 2.1 mg/dL (1.8-2.4); Potassium 4.2 mmol/L (3.5-5.1); Sodium 138 mmol/L (136-145); TSH (W/Ref FT4) 1.26 uIU/mL (0.36-3.74); Troponin I 9 ng/L (<or=76)
--- NOTE | 2023-12-20 14:25 | PGE_ITS ---
Date of Service Date of service: 12/20/23 Time of Service: 14:25 Assessment and Plan Assessment and plan (1) Atrial fibrillation with controlled ventricular rate: Status: Acute Assessment and plan: Prior to induction of anesthesia, patient was noted to be in A-fib on the monitor in the OR. Patient denied any substance use other than his normal daily Suboxone. He did receive gabapentin and Tylenol preop. He denied any prior history of cardiac problems. Because of no history of A-fib and new onset, the case was aborted. Patient was brought back to same-day surgery. Vital signs were stable. An EKG was done that did show him to be in A-fib with a heart rate of ~60. Troponin/hemoglobin/TSH/A1c/electrolytes were normal. Patient was given baby aspirin immediately upon arrival back to same- day surgery. He will be started on apixaban 5 mg p.o. twice daily- Rx given. The [facility] medical staff was notified of the patient's condition, and that surgery was canceled and he should see cardiology for evaluation. Once he is evaluated by cardiology and etiology of the A-fib is elucidated, then we will reschedule him for his right inguinal hernia at a later date. See labs any EKG in [facility]. See d/c summary This document was created with voice activated software and may contain errors. 30 mins spent in direct pt care and 15 in non face to face time (2) Polysubstance abuse: Status: Acute (3) Narcotic abuse in remission: Objective Last Vital Signs Temp 36.3 C L 12/20/23 11:54 Pulse 52 L 12/20/23 11:54 Resp 14 12/20/23 11:54 BP 139/88 12/20/23 11:54 Pulse Ox 99 12/20/23 11:54 Laboratory Results - last 24 hr 12/20/23 12/20/23 12/20/23 12:18 12:18 12:18 WBC 5.95 RBC 5.02 Hgb 14.4 Hct 44.1 MCV 88 MCH 28.7 MCHC 32.7 RDW 12.7 Plt Count 227 MPV 10.9 Immature Gran % 0.3 Neutrophils % 58.7 Lymphocytes % 31.6 Monocytes % 6.4 Eosinophils % 2.2 Basophils % 0.8 Nucleated RBC % 0.0 Absolute Neutrophils 3.49 Absolute Lymphocytes 1.88 Absolute Monocytes 0.38 Absolute Eosinophils 0.13 Absolute Basophils 0.05 PT 10.3 INR 1.0 Sodium 138 Potassium 4.2 Chloride 103 Carbon Dioxide 29.7 Anion Gap 5.3 BUN 18 Creatinine 1.0 Est GFR (CKD-EPI 2020) 96.97 Glucose 102 Hemoglobin A1c 5.6 Calcium 8.6 Magnesium 2.1 Total Bilirubin 0.51 AST 26 ALT 36 Alkaline Phosphatase 74 Troponin I 9 Cancelled Total Protein 7.0 Albumin 3.7 TSH 1.26 Cancelled Time Spent with Patient Time Spent with Patient: 35-49 minutes Time was spent: preparing to see the patient(eg.review tests), obtaining and/or reviewing separately otained hiistory, ordering medications,tests, procedures, referring, communicating with other health wound care technician, indepentently interpreting results, counseling the patient, care coordination and other
== END 2023-12-20 14:23 | disposition home or self-care (01) ==
PROVIDERS: PCP Internal Medicine; Visit Provider Surgery
PROC: (CPT 49505; principal; 2023-12-20 10:30)
DX: Z53.09 Procedure and treatment not carried out because of other contraindication; K40.90 Unilateral inguinal hernia, without obstruction or gangrene, not specified as recurrent
CPT/HCPCS: 49505; 36415; 80053; 83036; 83735; 84443; 84484; 85025; 85610; 93005; 93010; C9290; J0665; J0690; J1100; J2405; J2704

== ENCOUNTER 2024-01-06 00:32 | Outpatient (CLI) | payer OTHER, SELFPAY ==
--- NOTE | 2024-01-06 08:30 | DI.US_ITS ---
APPROVED REPORT EXAM: Comprehensive 2D, Doppler, and color-flow Echocardiogram Patient Location: Out-Patient Sponge Diver: Mario Moser RDCS (AE) Indications: Afib Conclusion Normal left ventricular wall thickness and chamber size. Ejection fraction is 60%. Wall motion is n ormal Normal right ventricular size and function Both atria are normal in size There are no structural valvular abnormalities Estimated right ventricular systolic pressure is 27 mmHg Wall motion Left Ventricle The left ventricle is normal size. Left ventricular systolic function is normal. The left ventricular ejection fraction is within the normal range. There is normal left ventricular wall thickness. There is normal LV segmental wall motion. There is no ventricular septal defect visualized. LVEF is 60%. Right Ventricle The right ventricle is normal size. The right ventricular systolic function is normal. Atria The left atrium size is normal. The right atrium size is normal. The interatrial septum is intact wit h no evidence for an atrial septal defect. Aortic Valve The aortic valve is normal in structure. Aortic valve is trileaflet. There is no aortic valvular sten osis. No aortic regurgitation is present. Mitral Valve The mitral valve is normal in structure. No evidence of mitral valve stenosis. Trace mitral regurgita tion. Tricuspid Valve The tricuspid valve is normal in structure. There is no tricuspid valve stenosis. Mild tricuspid regu rgitation. The RVSP is 27.1 mmHg. Pulmonic Valve The pulmonary valve is normal in structure. There is no pulmonic valvular stenosis. Mild pulmonic reg urgitation. Great Vessels The aortic root is normal in size. The ascending aorta is normal in size. Aortic arch is normal in ca liber. IVC is normal in size and collapses >50% with inspiration. Pericardium There is no pericardial effusion. 2D Dimensions IVSD d PLAX 1.18 cm M: 0.6-1.2 Ao Root d 3.40 cm M: 3.1 - 3.7 LVPW d PLAX 1.20 cm M: 0.6 - 1.2 Ao Asc Diam d 3.37 cm M: 2.6 - 3.4 LVID d PLAX 5.22 cm M: 4.2 - 5.8 LVDs 3.53 cm M: 2.5 - 4.0 LV EF Teichholz 60.1 % FS 32.29 % LV EDV (Teich) 130.5 mL LV ESV (Teich) 52.0 mL Stroke Vol Index (Teich) 32.98 M-Mode TAPSE 1.89 cm (M/F) >1.7 Auto EF LV EDV A4C 167.4 mL LV EDV A2C 168.5 mL LV EDV BP 172.1 mL LV ESV A4C 69.6 mL LV ESV A2C 70.2 mL LV ESV BP 70.5 mL LVEF(%) A4C 58.4 % LVEF(%) A2C 58.3 % LVEF(%) BP 59.0 % LV SV A4C 97.8 ml LV SV A2C 98.3 ml LV SV BP 101.6 ml LV CO A4C 9.9 L/min LV CO A2C 9.2 L/min LV CO BP 9.6 L/min HR A4C 101.41 BPM HR A2C 94.00 BPM LV EDV Index (BP) LA Volume LA Length A4C 5.3 cm LA Length A2C 5.2 cm LA Area A4C s 22.05 cm2 LA Area A2C s 24.93 cm2 LA Vol A4C A-L 78.52 mL LA Vol A2C A-L 102.41 mL LA Vol Biplane A-L 90.6 mL LA Vol/BSA A4C A-L LA Vol/BSA A2C A-L LA Vol/BSA BP A-L 38.1 mL/m2 LA Vol A4C MOD 65.7 mL LA Vol A2C MOD 97.1 mL LA Vol BP MOD 80.1 mL RA Volume RA Area A4C 18.7 cm2 RA ESV A4C (A-L) 60.4mL RA Vol/BSA A4C A-L RA Length A4C 4.9 cm RA ESV A4C (MOD) 59.4mL Aortic Valve AoV Vmax 1.34 m/s LVOT Vmax 0.99 m/s AoV Peak Grad 7.2 mmHg LVOT Peak Grad 3.9 mmHg AoV Area (Vmax) 2.54 cm2 LVOT VTI 0.208 m AoV VTI 0.295 m LVOT Mean Grad 2.4 mmHg AoV Mean Johan. 0.97 m/s LVOT SV 71.58 mL AoV Mean Grad 4.2 mmHg LVOT Diam s 2.05 cm AoV Area (VTI) 2.42 cm2 AV Regurg Peak Gr. 7.18 mmHg Velocity Ratio 0.74 Mitral Valve MV Vmax TIPS 0.87 m/s MV Mean Grad 1.0 (<2mmHg) MV VTI 0.291 m Pulmonary Valve PV Vmax 1.11 (0.5-1.5 m/s) RVOT Vmax 0.51 m/s PV Peak Grad 4.9 mmHg RVOT Peak Gr. 1.0 mmHg PV Mean Johan 0.76 m/s RVOT VTI 0.110 m PV Mean Grad 2.6 mmHg RVOT Mean Gr. 0.5 mmHg Tricuspid Valve RA Pressure 3.00 mmHg TR Vmax 2.45 m/s TR Peak Grad 24.0 mmHg RVSP (TR) 27.1 mmHg
== END 2024-01-06 00:52 ==
LOC: DI 00:32
PROVIDERS: PCP Internal Medicine; Visit Provider Emergency Medicine
DX: I48.91 Unspecified atrial fibrillation (principal)
CPT/HCPCS: 93306

== ENCOUNTER 2024-02-10 13:10 | Outpatient (CLI) | payer OTHER, SELFPAY ==
--- NOTE | 2024-02-10 13:00 | RT.EKG_ITS ---
APPROVED REPORT Exam: Resting ECG Reason for Exam: baseline Patient Location: O HR:75 bpm ECG Measurements Heart Rate 75 AXIS VT [id number] P [id number] QRSd 90 QRS 31 QT 368 T 31 QTc 411 Conclusion Atrial fibrillation...V-rate 59- 67, irreg A-activity Otherwise unremarkable
== END 2024-02-10 13:11 | disposition home or self-care (01) ==
LOC: DI.CARD 13:10
PROVIDERS: PCP Internal Medicine; Visit Provider Internal Medicine Cardiovascular Disease
DX: I48.91 Unspecified atrial fibrillation (principal)
CPT/HCPCS: 93010

== ENCOUNTER 2024-02-16 17:34 | Emergency (ER) | payer OTHER, SELFPAY ==
[2024-02-16 17:30] VITALS: BP 173/113; PULSE 81; RESP 18; TEMP 36.7; O2SAT 98
--- NOTE | 2024-02-16 17:45 | RT.EKG_ITS ---
APPROVED REPORT Exam: Resting ECG Reason for Exam: dizziness Patient Location: E HR:89 bpm ECG Measurements Heart Rate 89 AXIS ME [id number] P [id number] QRSd 88 QRS 67 QT 361 T 47 QTc 440 Conclusion Atrial fibrillation...V-rate 67- 97, irreg A-activity Ventricular premature complex...V complex w/ short R-R interval Rate controlled atrial fibrillation at a rate of 89. Normal axis. Intervals within normal limits. No ST segment abnormalities. No acute injury pattern. Appears similar to prior dated earlier this [facility].
[2024-02-16 17:46] VITALS: BP 197/128; PULSE 80; O2SAT 96
[2024-02-16 18:05] LABS: HCT 40.3 % (40.0-50.0); HGB 13.5 g/dL (13.5-17.5); MCH 29.3 pg (27.0-33.0); MCHC 33.5 % (32.0-36.0); MCV 88 fL (80-95); MPV 10.6 fL (8.0-11.0); Platelet Count 293 10^3/uL (130-400); RDW 13.2 % (11.8-14.1); RDW-SD 41.9 fL; WBC 7.11 10^3/uL (4.4-10.8)
[2024-02-16] MEDS: diphenhydrAMINE 50 MG/ML VIAL 25 MG IVP (18:16)
[2024-02-16] MEDS: Metoclopramide 10 MG/2 ML VIAL IVP (18:16)
--- NOTE | 2024-02-16 18:20 | ED.GENADUL_ITS ---
Discharge Plan Disposition Patient Disposition: [facility] Discharge Details Clinical Impression: Headache Primary Care Provider: Vipin Beaver ED Provider: Poppy Zavala Home Meds and New Rx's Prescriptions: No Action melatonin 3 mg capsule 6 mg PO HS PRN acetaminophen [Tylenol] 325 mg capsule 650 mg PO TID PRN ibuprofen 600 mg tablet 600 mg PO Q8H PRN hydroxyzine HCl 25 mg tablet 25 mg PO DAILY buprenorphine-naloxone 8-2 mg tablet, sublingual 3 tab sublingual DAILY Discharge Instructions Additional Instructions: Please follow-up with medical staff for regular blood pressure checks. If your blood pressure continues to be elevated, I recommend starting blood pressure medication. I recommend that you continue to use lidocaine patches or muscle rubs to the sore area on your neck/shoulder. Your headache was most likely caused by muscle tension. You may continue to use Tylenol / ibuprofen and gentle stretching as well. Your cardiac workup today is reassuring. Please follow-up as scheduled with cardiology. Return to emergency care if you develop new severe headache, vision changes, episodes of dizziness, chest pain, difficulty breathing, or if you are very worr ied and need to be rechecked again immediately HPI General Date/Time Provider Initiated Documentation: 02/16/24 17:52 . HPI Narrative: Zane is a 43year old male who presents to the emergency department today for evaluation of right sided headache. He reports that headache started a couple of days ago which he thought was due to sleeping wrong, he has been treating it with Tylenol and ibuprofen without much success. Headache radiates from mosque down back of neck. Today headache got worse and he had an episode of dizziness with warmth/sweating and nausea that occurred while watching football. He took 800 mg ibuprofen and went to the [facility], was found to have elevated blood pressure. Headache is not positional, does not change with lying or standing. He denies associated fever/chills, vision changes,neck pain, tinnitus/whooshing noise in ears, sore throat, congestion, cough, difficulty breathing, change in p.o. intake, abdominal pain, change in bowel or bladder function, extremity weakness/numbness. Past medical history is significant for A-fib with controlled rate, recently stopped Eliquis and history of polysubstance abuse currently on Suboxone. Denies recent medication changes, head injury, or drug use. He does report a history of migraine, says that he usually gets headaches on the side of his head similar to this one (sometimes on R, sometimes on L). Denies HTN, HLD, bleeding or clotting disorders, hormone use, recent surgery/immobility, or significant family history of connective tissue disorders. Former tobacco user. Physical exam reassuring. Zane is alert and oriented, no acute distress. PERRL, EOMs intact. Cranial nerves II through XII intact as tested. Moist mucous membranes. Full painless range of motion of neck. He does have significant muscle tightness noted to the trapezius, with tenderness to palpation. No carotid bruits. Normal heart rate. Easy work of breathing, lung sounds clear bilaterally. No tenderness to palpation of left chest wall. Abdomen soft, nondistended, nontender to palpation. 5/5 muscle strength upper and lower extremities, sensation grossly intact. Hypertension is noted on vital signs, blood pressure 173/113. While in the emergency department Zane reports that he had some brief left-sided chest discomfort with deep breathing that resolved spontaneously. History and presentation most consistent with migraine headache, no as patient had history of dizziness earlier today, obtained EKG and blood work to rule out electrolyte imbalance, ACS, dehydration, or other serious etiology. No red flags in headache history concerning for intracranial hemorrhage or other serious etiology requiring diagnostic imaging. Heart score 1, indicating low risk of MACE. Low suspicion for PE as cause of transient CP, PERC negative I independently interpreted the following tests: EKG notable for A-fib, rate 89, no changes consistent with acute ischemia. PVC noted. CBC, TSH, troponins x 2, and CMP reassuring, only slightly elevated creatinine to BUN ratio. While in the emergency department, Zane received IV Reglan with Benadryl, reports pain has decreased to 4/10. Blood pressure has decreased to 140/80 after pain medication. Lidocaine patch applied for discomfort. While in the emergency department Zane was given a sandwich and anneliese claudio, which she was able to eat and drink without difficulty. History and presentation consistent with migraine/tension headache, likely due to muscle spasm. Recommend close monitoring of blood pressure, as antihypertensives may be indicated. Reviewed discharge instructions with patient, including symptomatic management and red flags indicating need for return to emergency care Related Data Home Medications ?Medication ?Instructions ?Recorded ?Confirmed acetaminophen 325 mg capsule 650 mg PO TID PRN 11/03/23 02/10/24 (Tylenol) ibuprofen 600 mg tablet 600 mg PO Q8H PRN 11/03/23 02/10/24 melatonin 3 mg capsule 6 mg PO HS PRN 11/03/23 02/10/24 buprenorphine 8 mg-naloxone 2 mg 3 tab sublingual DAILY 12/16/23 02/10/24 sublingual tablet hydroxyzine HCl 25 mg tablet 25 mg PO DAILY 12/16/23 02/10/24 Allergies Allergy/AdvReac Type Severity Reaction Status Date / Time No Known Allergies Allergy Verified 02/10/24 13:18 General Stated Complaint: Headache CHEMO: 3 Review of Systems Narrative: see HPI Exam Const General: cooperative, healthy appearing, comfortable, no acute distress, well developed and well groomed Nutritional Appearance: average body habitus Orientation: alert and oriented x3 HENMT Head: normal to inspection, normocephalic and atraumatic Ears: hearing grossly normal bilaterally General nose exam: external nose normal Face and sinus: normal facial exam Mouth: oral mucosae normal Throat: posterior oropharynx normal Eyes Pupils: PERRL EOM: EOM intact bilaterally Neck Neck: normal visual inspection, full ROM, no lymphadenopathy, no meningeal signs and supple Resp Effort & Inspection: normal respiratory effort and able to speak in complete sentences Auscultation: clear to auscultation bilaterally Cardio Jugular venous pressure: no JVD Rate: regular rate Rhythm: regular rhythm GI Inspection: normal to inspection and non-distended Palpation: soft, not firm, no guarding, not rigid and nontender Skin General skin exam: no rashes or lesions noted Neuro General: patient alert, patient oriented x3, tone normal, moves all extremities, no meningeal signs, no focal motor deficits and CN's II-XI intact bilaterally Cranial Nerves: CN's II-XI intact bilaterally, PERRL, EOM intact bilaterally, no nystagmus and facial strength normal Cognition: normal cognition Speech: speech normal Motor: muscle tone normal throughout and strength 5/5 throughout Sensory Exam: no sensory deficits noted Course Vital Signs Vital signs: Vital Signs Temperature 36.7 C 02/16/24 17:30 Pulse 81 02/16/24 17:30 Respiratory Rate 18 02/16/24 17:30 Blood Pressure 173/113 H 02/16/24 17:30 Pulse Oximetry 98 02/16/24 17:30 Temperature 36.7 C 02/16/24 17:30 Temperature Source Temporal Artery Scan 02/16/24 17:30 Pulse 81 02/16/24 17:30 Respiratory Rate 18 02/16/24 17:30 Respiratory Effort Normal, Non-Labored 02/16/24 17:38 Blood Pressure 173/113 H 02/16/24 17:30 Pulse Oximetry 98 02/16/24 17:30 Oxygen Delivery Method Room Air 02/16/24 17:30 Oxygen Flow Rate 0 02/16/24 17:30 Pain Level 8 02/16/24 17:36 Lab/Test Results Lab/Test Results: Laboratory Tests Range/Units 02/16/24 18:00 WBC (4.4-10.8) 10^3/uL 7.11 RBC (4.36-5.78) 10^6/uL 4.60 Hgb (13.5-17.5) g/dL 13.5 Hct (40.0-50.0) % 40.3 MCV (80-95) fL 88 MCH (27.0-33.0) pg 29.3 MCHC (32.0-36.0) % 33.5 RDW (11.8-14.1) % 13.2 Plt Count (130-400) 10^3/uL 293 MPV (8.0-11.0) fL 10.6 Medical Decision Making Quality:SDOH Health Related Social Needs: No Data to Display PFSH All Active Problems (Updated 02/16/24 @ 19:12 by Poppy Vega) Headache (Acute) Atrial fibrillation with controlled ventricular rate (Acute) Inguinal hernia of right side without obstruction or gangrene (Acute) Polysubstance abuse (Acute) Medical History Narcotic abuse in remission Surgical History H/O vasectomy No significant past surgical history Social History Smoking/Tobacco Use Status: Former Tobacco Use Smoking risk assessment performed?: Yes Alcohol Intake: former Drug use: Current Sobriety Substance use type: former substance user Housing: other Additional Social history: [facility]
[2024-02-16 18:29] LABS: ALT 48 U/L (16-63); AST 26 U/L (15-37); Albumin 4.3 g/dL (3.4-5.0); Alkaline Phosphatase 78 U/L (46-116); Anion Gap 7.7 mmol/L (3-11); BUN 27 mg/dL (7-18); Bilirubin, Total 0.31 mg/dL (0.2-1.0); CO2 30.3 mmol/L (21.0-32.0); CREATININE 1.1 mg/dL (0.70-1.30); Calcium 8.4 mg/dL (8.5-10.1); Chloride 106 mmol/L (98-107); Estimated GFR 86.49 (mL/min/1.73m2); Glucose 103 mg/dL (74-106); Potassium 4.3 mmol/L (3.5-5.1); Sodium 144 mmol/L (136-145); TSH (W/Ref FT4) 2.08 uIU/mL (0.36-3.74); Total Protein 7.3 g/dL (6.4-8.2)
[2024-02-16 18:57] VITALS: BP 146/85; PULSE 65; PULSE 71; RESP 16; O2SAT 97
[2024-02-16 19:01] VITALS: BP 145/80; PULSE 69; PULSE 87; RESP 18; O2SAT 97
[2024-02-16 19:01] LABS: Troponin I 21 ng/L (<or=76)
[2024-02-16 19:26] LABS: Troponin I 21 ng/L (<or=76)
[2024-02-16 19:31] VITALS: BP 153/90; PULSE 100; PULSE 77; RESP 19; O2SAT 99
[2024-02-16] MEDS: Lidocaine 5% Patch 1 PATCH TP (19:50)
== END 2024-02-16 19:51 ==
PROVIDERS: Emergency Provider Nurse Practitioner Family; PCP Internal Medicine
DX: R51.9 Headache, unspecified (principal)
CPT/HCPCS: 80053; 85027; 93005; 96374; 96375; 99284; 84443; 84484; 93010; J1200; J2765

== ENCOUNTER 2024-03-28 09:11 | Day surgery (SDC) | payer OTHER, SELFPAY ==
--- NOTE | 2024-03-27 18:18 | W.PREOPHP ---
Assessment and Plan Assessment and plan (1) Inguinal hernia of right side without obstruction or gangrene: Status: Acute Assessment and plan: We reviewed the plan for right inguinal herniorrhaphy by way of an open approach with implantation of a permanent mesh. I explained the risks and the benefits of the operation, and I think Zane has a very good understanding of all this. He was able to provide informed consent, and we can proceed with inguinal herniorrhaphy as planned History of Present Illness History of Present Illness Chief Complaint: right inguinal hernia Narrative: Zane is 43 years old. He has a symptomatic right-sided inguinal hernia. He recalls it for starting several months ago, and over the past few weeks it has increased in size a little bit, and extended down more towards the scrotum. The most often times causes discomfort with physical activity. He had been scheduled for elective repair of this, but incidentally, at the time of surgery, he was found to be in newly diagnosed atrial fibrillation. That surgery was canceled, he was referred to cardiology. Echocardiogram was reassuring. Although he was started on therapeutic anticoagulation, this has since been discontinued because of his [id number] score of 0. He was started on propranolol, which she seems to be tolerating without any major symptoms. PFSH All Active Problems Atrial fibrillation with controlled ventricular rate (Acute) Inguinal hernia of right side without obstruction or gangrene (Acute) Polysubstance abuse (Acute) Medical History Narcotic abuse in remission Surgical History H/O vasectomy No significant past surgical history Social History Smoking/Tobacco Use Status: Former Tobacco Use Smoking risk assessment performed?: Yes Alcohol Intake: former Drug use: Current Sobriety Substance use type: former substance user Housing: other Additional Social history: [facility] Meds Allergies and Home Medications Allergies Allergy/AdvReac Type Severity Reaction Status Date / Time No Known Allergies Allergy Verified 03/28/24 09:40 Home Medications ?Medication ?Instructions ?Recorded ?Confirmed ?Type acetaminophen 325 mg capsule 650 mg PO TID PRN 11/03/23 03/28/24 History (Tylenol) ibuprofen 600 mg tablet 600 mg PO Q8H PRN 11/03/23 03/26/24 History melatonin 3 mg capsule 6 mg PO HS PRN 11/03/23 03/26/24 History aspirin 325 mg tablet 325 mg PO DAILY 03/26/24 03/28/24 History buprenorphine HCl 2 mg sublingual 4 mg sublingual DAILY 03/26/24 03/28/24 History tablet buprenorphine HCl 8 mg sublingual 16 mg sublingual DAILY 03/26/24 03/28/24 History tablet mirtazapine 7.5 mg tablet 7.5 mg PO DAILY 03/26/24 03/28/24 History propranolol 10 mg tablet 10 mg PO BID 03/26/24 03/28/24 History tolnaftate 1 % topical cream 1 applic topical BID PRN 03/26/24 03/26/24 History (Athlete's Foot (tolnaftate)) Exam Const General: cooperative, healthy appearing and not in acute distress Neck Neck: normal visual inspection, no lymphadenopathy and supple Thyroid: thyroid normal Resp Effort & Inspection: normal respiratory effort Auscultation: clear to auscultation bilaterally Cardio Jugular venous pressure: no JVD Rhythm: abnormal rhythm Heart Sounds: S1 normal and S2 normal GI Inspection: normal to inspection Palpation: soft, no guarding, hernia (Right inguinal) and nontender Percussion: normal to percussion Auscultation: normal bowel sounds Neuro General: patient alert, patient awake and patient oriented x3 Psych Appearance: grossly normal
--- NOTE | 2024-03-27 18:19 | PDOC.DSDIS_ITS ---
Date of service: 03/28/24 Discharge Plan Disposition Patient Disposition: Home Condition: Good Discharge Details Reason For Visit: inguinal hernia repair Attending Provider: Jon Rice Primary Care Provider: Vipin Beaver Home Meds and New Rx's Prescriptions: Continued melatonin 3 mg capsule 6 mg PO HS PRN acetaminophen [Tylenol] 325 mg capsule 650 mg PO TID PRN ibuprofen 600 mg tablet 600 mg PO Q8H PRN buprenorphine HCl 8 mg tablet, sublingual 16 mg sublingual DAILY buprenorphine HCl 2 mg tablet, sublingual 4 mg sublingual DAILY aspirin 325 mg tablet 325 mg PO DAILY propranolol 10 mg tablet 10 mg PO BID mirtazapine 7.5 mg tablet 7.5 mg PO DAILY tolnaftate [Athlete's Foot (tolnaftate)] 1 % cream 1 applic topical BID PRN Discharge Instructions Instructions: Groin Hernia Repair (DC) Additional Instructions: Weight, is very nice meeting you today, and I hope you make a quick recovery from this operation. Everything went very smoothly, I was able to find the hernia, get pushed back into normal place, and patched up the whole as we discussed before hand. Expect to get quite a bit of bruising over the area in the days to come. This may even extend down into your scrotum. That is extremely common and nothing to worry about. I would like to know if any of the skin starts turning bright red, or there is any drainage from the wound. Keeping your hips and scrotum elevated as best she can when you are resting is a good way to help reduce swelling. I also recommend ice packs over your groin to help with postoperative pain. I usually recommend that patients alternate [id number] strength Tylenol and ibuprofen every 6 hours for the first 2 days, then use as needed. I typically prescribe tramadol 50 mg by mouth every 8 hours if needed for more severe pain. You should be up and walking around a little bit throughout the course of the day even just to stretch her legs a bit. No lifting more than about a gallon of milk or so, and no vigorous exercise activities until we see you in the office. Leave the bandage in place for 24 hours, then you can remove it. If it becomes saturated in that time period, it can be exchanged for a basic Band-Aid or simple dressing. If it stays dry until tomorrow, then remove it, wash the incision with warm soapy water, and repeat every day to keep the incision clean. If you need anything, please let the [facility] know, and they can help with contacting the office. Activity:: no heavy lifting Remove Dressings/Wound Care:: 24 hours Shower/Bathe:: 24 hours Diet:: As Tolerated Discharge Orders Discharge Orders: Discharge Order (Routine); Ordered 03/27/24 Ordered By: Jon Rice DS: Diagnosis Discharge Diagnosis (1) Inguinal hernia of right side without obstruction or gangrene: Status: Acute Asessment and Plan: Outpatient postoperative follow-up
--- NOTE | 2024-03-27 18:20 | ROE_ITS ---
Operative Note Operative Note PRE-OP DIAGNOSIS: right inguinal hernia POST-OP DIAGNOSIS: same PROCEDURE: open right inguinal hernia repair with plug and patch SURGEON: Jon Rice [employer] WORKER STAMPING: Gwendolyn Bass ANESTHESIA TYPE: Local By Surgeon and General LMA/ETT Refer to Anesthesia Record ESTIMATED BLOOD LOSS: 25 PATHOLOGY: none sent COMPLICATIONS: None Patient was transported to: PACU Implants: Bard mesh PerFix large plug and patch Indications: Zane is a 43-year-old male with an enlarging symptomatic right-sided inguinal hernia Findings: Large indirect inguinal hernia on the right Procedure Description: I began by confirming the correct site with the patient. He was then brought back into the operating room and assisted onto the OR table. He was padded and supported appropriately. General endotracheal anesthesia was induced. Next, the anesthesia service provided a right-sided ultrasound-guided nerve block for Zane. The surgical site was then prepped and draped in the usual fashion. I began by making an oblique incision over the right inguinal region. I dissected down through the skin to the deep fascia. Next, I incised the fascia along the length of the inguinal canal to the external ring. I then carefully identified the ilioinguinal nerve and sharply divided. Once this was complete, I bluntly dissected the shelving edge of the inguinal ligament down towards the pubic tubercle. Here, I encircled all cord structures with a Brannon drain. Next, I began dissecting the specific cord structures. Great care was taken to spare the vas deferens and the blood supply to the testicle. Next, I isolated the hernia sac from the other inguinal structures. I reduced it back to its normal anatomic position. This is a large indirect inguinal hernia. I then used a large mesh plug to obliterate the defect at the internal ring. I fixed in place with interrupted Prolene stitches. Next, I buttressed the posterior floor of the inguinal canal with a large mesh patch. I started by fixing it to the pubic tubercle. Next, I used Prolene sutures to affix it to the shelving edge of the inguinal ligament and the conjoined tendon. Laterally I tacked it to the internal oblique fascia and reconstructed an internal ring without any strain on the cord structures. Once this was complete, I irrigated the surgical field. It appeared hemostatic. I then closed the anterior portion of the fascia to reconstruct the front wall of the inguinal canal. I did this with interrupted Vicryl stitches. Once again, I irrigated the surgical field and inspected for hemostasis. Finally, I approximated the superficial fascia and the deep layers of the skin with absorbable suture. Skin was closed with running subcuticular stitches. Bandages were applied, the patient was awakened and transferred to the recovery unit. Date of Procedure: 03/28/24
[2024-03-28] VITALS (25 sets, daily range): BP systolic 128–171; BP diastolic 88–129; PULSE 47–84; RESP 9–22; TEMP 36.2–36.6; O2SAT 96–100; BMI 34.6
--- NOTE | 2024-03-28 09:59 | ANES.PREOP_ITS ---
General Info Date of Service Date Performed: 03/28/24 Height: 6 ft 2 in Weight: 122.3 kg Body Mass Index (BMI): 34.6 Surgical Procedure: Operation Date: 03/28/24 11:10 Proposed Procedure Side Surgeon p Herniorrhaphy Inguinal w/Mesh Right Jon Rice MD Meds Allergies and Home Medications Allergies Allergy/AdvReac Type Severity Reaction Status Date / Time No Known Allergies Allergy Verified 03/28/24 09:40 Home Medication ?Medication ?Instructions ?Recorded acetaminophen 325 mg capsule 650 mg PO TID PRN 11/03/23 (Tylenol) ibuprofen 600 mg tablet 600 mg PO Q8H PRN 11/03/23 melatonin 3 mg capsule 6 mg PO HS PRN 11/03/23 aspirin 325 mg tablet 325 mg PO DAILY 03/26/24 buprenorphine HCl 2 mg sublingual 4 mg sublingual DAILY 03/26/24 tablet buprenorphine HCl 8 mg sublingual 16 mg sublingual DAILY 03/26/24 tablet mirtazapine 7.5 mg tablet 7.5 mg PO DAILY 03/26/24 propranolol 10 mg tablet 10 mg PO BID 03/26/24 tolnaftate 1 % topical cream 1 applic topical BID PRN 03/26/24 (Athlete's Foot (tolnaftate)) Current Visit Medications: Current Medications Generic Name Dose Route Start Last Admin Trade Name Shayneq PRN Reason Stop Dose Admin Acetaminophen 1,000 mg 03/28/24 06:00 Acetaminophen 500 Mg Tab PO 03/28/24 23:59 PREOP MICHAEL Gabapentin 600 mg 03/28/24 06:00 Gabapentin 300 Mg Cap PO 03/28/24 23:59 PREOP MICHAEL Hydromorphone HCl 2 mg 03/27/24 18:21 Hydromorphone 2 Mg Tab PO 04/26/24 18:20 Q4H PRN PRN Pain Ringer's Solution 1,000 mls @ 80 mls/hr 03/28/24 06:00 IV 03/28/24 23:59 INFUSION MICHAEL Cefazolin Sodium/Dextrose 2 gm in 50 mls @ 100 mls/hr 03/28/24 06:00 Ancef Duplex IVPB 03/28/24 23:59 PREOP MICHAEL IV Miscellaneous Supplies 1 each 03/28/24 06:00 Iv Access IV 03/28/24 23:59 DIRECTED MICHAEL Sodium Chloride 0 ml 03/28/24 06:00 Normal Saline Flush 10 Ml Syr IV 03/28/24 23:59 PRN PRN Sodium Chloride 0 ml 03/28/24 06:00 Normal Saline 10 Ml Vial IJ 03/28/24 23:59 DIRECTED PRN Sterile Water 0 ml 03/28/24 06:00 Water,Injection,Sterile 10 Ml Vial IJ 03/28/24 23:59 DIRECTED PRN Tramadol HCl 100 mg 03/27/24 18:21 Tramadol 50 Mg Tab PO 04/26/24 18:20 Q6H PRN PRN Pain PFSH Active Problems Active Problems: Problem Status Onset Code Atrial fibrillation with controlled ventricular rate Acute I48.91 Inguinal hernia of right side without obstruction or gangrene Acute K40.90 Polysubstance abuse Acute F19.10 Medical History Medical History Narcotic abuse in remission Surgical History Surgical History H/O vasectomy No significant past surgical history Tobacco Smoking/Tobacco Use Status: Former Tobacco Use Alcohol Alcohol Intake: former Substance Use Substance use: Current Sobriety Substance use type: former substance user Vital Signs and Lab Results Vital Signs Most Recent Vital Signs in EMR: Temp Pulse Resp BP Pulse Ox 36.6 C 84 20 128/100 H 98 03/28/24 09:42 03/28/24 09:42 03/28/24 09:42 03/28/24 09:42 03/28/24 09:42 Lab Results Blood Type / Crossmatch: 2 No Data to Display Complete Blood Count: 2 No Data to Display Complete Metabolic Panel: 2 No Data to Display Liver Function Panel: 2 No Data to Display Coagulation Panel: 2 No Data to Display Cardiac Panel: 2 No Data to Display Arterial Blood Gas: 2 No Data to Display Venous Blood Gas: 2 No Data to Display Pancreas Panel: 2 No Data to Display Thyroid Panel: 2 No Data to Display Infectious Disease: 2 No Data to Display Blood Cultures: 2 No Data to Display Toxicology Panel: 2 No Data to Display Imaging and Studies Imaging and Studies Study information below may be from another EMR and interpreted by another provider. Please see original notes in EMR for more complete details. EKG Summary: EKG PATIENT NAME: Zane Solomon UNIT #: [id number] ORDERING PROVIDER: Poppy Zavala PRIMARY CARE PROVIDER: VIPIN BEAVER MD DATE/TIME OF SERVICE: 02/16/241752 : 1980 PERFORMING LOCATION: ER APPROVED REPORT Exam: Resting ECG Reason for Exam: dizziness Patient Location: E HR:89 bpm ECG Measurements Heart Rate 89 AXIS RI [id number] P [id number] QRSd 88 QRS 67 QT 361 T47 QTc 440 Conclusion Atrial fibrillation...V-rate 67- 97, irreg A-activity Ventricular premature complex...V complex w/ short R-R interval Rate controlled atrial fibrillation at a rate of 89. Normal axis. Intervals within normal limits. No ST segment abnormalities. No acute injury pattern. Appears similar to prior dated earlier this month. - <Electronically signed by Darnell Martell M.D. in [facility]> E-Sign Date: 02/16/24 E-Sign Time: 180 ADDENDUM APPROVED REPORT Exam: Resting ECG Reason for Exam: dizziness Patient Location: E HR:89 bpm ECG Measurements Heart Rate 89 AXIS RI [id number] P [id number] QRSd 88 QRS 67 QT 361 T47 QTc 440 Conclusion Atrial fibrillation...V-rate 67- 97, irreg A-activity Ventricular premature complex...V complex w/ short R-R interval Rate controlled atrial fibrillation at a rate of 89. Normal axis. Intervals within normal limits. No ST segment abnormalities. No acute injury pattern. Appears similar to prior dated earlier this month. I have reviewed and interpreted ECG and agree with software generated interpretation. Electronically signed by: <Electronically signed by Ena Encarnacion M.D. in [facility]> 02/21/24 1109 Cosigned by: Echocardiogram Summary: Patient Name: Zane Solomon Unit #: [id number] Loc: DI Ordering Provider: Deng Dobson Status: REG CLI Primary Care Provider: Vipin Beaver M.D. Date of Exam: 01/06/24 Sex: M Admission Date: 01/06/24 : 1980 Age: 43 APPROVED REPORT EXAM: Comprehensive 2D, Doppler, and color-flow Echocardiogram Patient Location: Out-Patient Private Branch Exchange Service Adviser: Mario Moser RDCS (AE) Indications: Afib Conclusion Normal left ventricular wall thickness and chamber size. Ejection fraction is 60%. Wall motion is normal Normal right ventricular size and function Both atria are normal in size There are no structural valvular abnormalities Estimated right ventricular systolic pressure is 27 mmHg Wall motion Left Ventricle The left ventricle is normal size. Left ventricular systolic function is normal. The left ventricular ejection fraction is within the normal range. There is normal left ventricular wall thickness. There is normal LV segmental wall motion. There is no ventricular septal defect visualized. LVEF is 60%. Right Ventricle The right ventricle is normal size. The right ventricular systolic function is normal. Atria The left atrium size is normal. The right atrium size is normal. The interatrial septum is intact with no evidence for an atrial septal defect. Aortic Valve The aortic valve is normal in structure. Aortic valve is trileaflet. There is no aortic valvular stenosis. No aortic regurgitation is present. Mitral Valve The mitral valve is normal in structure. No evidence of mitral valve stenosis. Trace mitral regurgitation. Tricuspid Valve The tricuspid valve is normal in structure. There is no tricuspid valve stenosis. Mild tricuspid regurgitation. The RVSP is 27.1 mmHg. Pulmonic Valve The pulmonary valve is normal in structure. There is no pulmonic valvular stenosis. Mild pulmonic regurgitation. Great Vessels The aortic root is normal in size. The ascending aorta is normal in size. Aortic arch is normal in caliber. IVC is normal in size and collapses >50% with inspiration. Pericardium There is no pericardial effusion. 2D Dimensions IVSD d PLAX 1.18 cm M: 0.6-1.2Ao Root d 3.40 cm M: 3.1 - 3.7 LVPW d PLAX 1.20 cm M: 0.6 - 1.2Ao Asc Diam d 3.37 cm M: 2.6 - 3.4 LVID d PLAX 5.22 cm M: 4.2 - 5.8 LVDs 3.53 cm M: 2.5 - 4.0 LV EF Teichholz 60.1 % FS32.29 % LV EDV (Teich)130.5 mL LV ESV (Teich)52.0 mL Stroke Vol Index (Teich)32.98 M-Mode TAPSE 1.89 cm (M/F) >1.7 Auto EF LV EDV T4Q282.4 mLLV EDV J3K233.5 mLLV EDV BP172.1 mL LV ESV A4C69.6 mLLV ESV A2C70.2 mLLV ESV BP70.5 mL LVEF(%) A4C58.4 %LVEF(%) A2C58.3 %LVEF(%) BP59.0 % LV SV A4C97.8 mlLV SV A2C98.3 mlLV SV BP101.6 ml LV CO A4C9.9 L/minLV CO A2C9.2 L/minLV CO BP9.6 L/min HR L2R803.41 BPMHR A2C94.00 BPMLV EDV Index (BP) LA Volume LA Length A4C5.3 cmLA Length A2C5.2 cm LA Area A4C s 22.05 cm2LA Area A2C s 24.93 cm2 LA Vol A4C A-L78.52 mLLA Vol A2C A-L102.41 mLLA Vol Biplane A-L90.6 mL LA Vol/BSA A4C A-LLA Vol/BSA A2C A-LLA Vol/BSA BP A-L 38.1 mL/m2 LA Vol A4C MOD65.7 mLLA Vol A2C MOD97.1 mLLA Vol BP MOD80.1 mL RA Volume RA Area A4C18.7 cm2RA ESV A4C (A-L)60.4mLRA Vol/BSA A4C A-L RA Length A4C4.9 cmRA ESV A4C (MOD)59.4mL Aortic Valve AoV Vmax1.34 m/sLVOT Vmax 0.99 m/s AoV Peak Grad7.2 mmHgLVOT Peak Grad 3.9 mmHg AoV Area (Vmax)2.54 rt4KVJC VTI0.208 m AoV VTI0.295 mLVOT Mean Grad 2.4 mmHg AoV Mean Johan.0.97 m/sLVOT SV 71.58 mL AoV Mean Grad4.2 mmHgLVOT Diam s 2.05 cm AoV Area (VTI)2.42 cm2AV Regurg Peak Gr.7.18 mmHg Velocity Ratio 0.74 Mitral Valve MV Vmax TIPS 0.87 m/s MV Mean Grad 1.0 (<2mmHg) MV VTI 0.291 m Pulmonary Valve PV Vmax 1.11 (0.5-1.5 m/s)RVOT Vmax 0.51 m/s PV Peak Grad 4.9 mmHgRVOT Peak Gr.1.0 mmHg PV Mean Vel0.76 m/sRVOT VTI0.110 m PV Mean Grad 2.6 mmHgRVOT Mean Gr.0.5 mmHg Tricuspid Valve RA Pressure 3.00 mmHgTR Vmax 2.45 m/s TR Peak Grad 24.0 mmHg RVSP (TR) 27.1 mmHg Ordered By: Deng Dobson CC: [facility] Dictated By: Ena Encarnacion M.D. 01/06/2441 <Electronically signed by Ena Encarnacion M.D. in [facility]> 01/06/24 1007 Transcribed By: Ena Encarnacion MD 01/06/24940 This is privileged, confidential information intended only for the provider named. Any use or distribution by any person other than this provider is strictly prohibited. If you receive this report in error, please notify us immediately at [phone] and return the original report to us at the address above. Thank-you. Anesthesia Assessment and Plan Anesthesia History Personal History: Unknown Anesthesia History Family History: Family History Unknown Exercise Tolerance Exercise Tolerance: Metabolic Equivalents>4 Pertinent Negatives Pertinent Negatives: No Symptoms of GERD and No History of CVA/TIA Cardiac & Pulmonary Exam Cardiac Exam: Normal S1/S2 Heart Sounds Pulmonary Exam: Clear Bilateral Breath Sounds Cardiac and Pulmonary Comment:: Known Afib, patient with undiagnosed HTN (has been hypertensive every recent past visit). Qld3PL5Hmax score of 1. Has been recently taken off of his Elequis by cardiology, discussed slightly increased anesthetic risk with patient today and he wishes to proceed. Implantable Cardiac Device Does patient have a Pacemaker or an ICD?: No Airway Exam Known Difficult Airway: No Mallampati Class: 3 Mouth Opening: Normal (> 3cm) Thyromental Distance: Greater than 3 cm Neck Range of Motion: Full ROM Neck Circumference: Normal Teeth Condition: Normal Dentition Tooth Numberin 1. Chipped tooth ASA Classification ASA Score: ASA 2 Emergency Case?: No NPO Status NPO Status: NPO Clears >2 hours, Solids >8 hours Anesthesia Plan Resuscitation Status: Full Code Anesthesia Technique: General Anesthesia Airway Planned: LMA Pain Management: Surgeon and patient request nerve block Monitors Used: Standard Monitors Preoperative Comments:: 43 yo male for hernia repair. Sig PMHx: former smoker, former substance abuse (buprenorphine/naloxone). Noted hypertensive every recent blood pressure reading since early 2022. Denies GERD appropriately NPO. Consented for unilateral TAP block.
[2024-03-28] MEDS: Lactated Ringers 1,000 ML 80 ML IV (10:03)
[2024-03-28] MEDS: Gabapentin 300 MG CAP 600 MG PO (11:21)
[2024-03-28] MEDS: ceFAZolin 2 GM/50 ML BAG IVPB (11:56)
[2024-03-28] MEDS: Bupivacaine 0.5% Pres-Free W/EPI 30 ML VIAL (12:19)
--- NOTE | 2024-03-28 12:24 | W.ANESNERVE ---
Nerve Block Single Injection Procedure Date and Time Date Performed: 03/28/24 Procedure Start: 12:01 Location Where Procedure Performed Procedure Location: Operating Room Procedure Stop: 12:13 Reason Performed: Postoperative Analgesia Requesting Provider: Jon Rice Timeout Performed Timeout Performed: Yes Monitoring Used ECG, Blood Pressure, SpO2 and ETCO2 Sterility Sterility: Hand Hygiene, Surgical Cap, Surgical Mask, Sterile Gloves and Chlorhexidine Sedation Given During Procedure Sedation Given (Indicate Dose Given): No Sedation given Patient Mental Status Patient Mental Status: Performed under general anesthesia Nerve Block 1st Nerve Block: Laterality: Right Block Type: TAP Unilateral Ultrasound Image Saved?: Yes Needle / Catheter Used: 100mm SonoPlex II Local Anesthetic Bolus (Indicate Dose Given): Injected in 3-5ml increments after negative blood aspiration, Bupivacaine 0.25% Dose:: 20 ml and Exparel Dose:: 10 ml Additives (Indicate Dose Given): Normal Saline (hydrodissection) Ultrasound: Sterile probe cover and gel used Nerve Stimulator: Not Used Paresthesia: None Procedure Tolerated: No Complications and Patient tolerated well Procedure Outcome: Successful Performed By: Iam Peacock
[2024-03-28] MEDS: fentaNYL 100 MCG/2 ML VIAL IVP ×2 (14:16→14:23)
--- NOTE | 2024-03-28 14:52 | W.ANESPOSTOP ---
Postoperative Evaluation Date, Time and Location Date Performed: 03/28/24 Time Performed: 14:27 Patient Location: PACU Vital Signs Most Recent Imported Vital Signs: Most Recent Vital Signs Temp Pulse Resp BP Pulse Ox 36.2 C L 74 18 147/114 H 98 03/28/24 14:38 03/28/24 14:38 03/28/24 14:38 03/28/24 14:38 03/28/24 14:38 Pain Score Most Recent Pain Score: Most Recent Pain Score Pain Level 5 03/28/24 14:38 Assessment Mental Status: Awake (Alert & Oriented to Patient Baseline) Airway and Respiratory Function: Patent airway with normal (patient baseline) respiratory exam Cardiovascular Function: Hemodynamically Stable Hydration Status: Adequately Hydrated Nausea & Vomiting: No Nausea or Vomiting Pain: Pain is tolerable per patient Peripheral Nerve Block: Patient did not receive a nerve block
[2024-03-28] MEDS: traMADol 50 MG TAB 100 MG PO (15:05)
== END 2024-03-28 15:47 | disposition home or self-care (01) ==
LOC: SUR 09:12
PROVIDERS: PCP Internal Medicine; Visit Provider Surgery
PROC: (CPT 49505; principal; 2024-03-28 11:00)
DX: K40.90 Unilateral inguinal hernia, without obstruction or gangrene, not specified as recurrent (principal)
CPT/HCPCS: 49505; C1781; J0131; J0665; J0666; J0690; J1100; J1885; J2003; J2250; J2405; J2704; J3010